=== PATIENT | female | born 1960 | race Two or more races ===

== ENCOUNTER 2020-04-04 15:01 | Inpatient (IN) | payer MEDICARE, OTHER ==
[~2020-04-04] VITALS: Ht 152.4 cm; Wt 93.9 kg
[2020-04-04] MEDS: IV NS 0.9% 1,000 ML IV ONE ×2 (00:49→18:30)
--- NOTE | 2020-04-04 15:05 | NUR ---
PT BIBRA FROM HOME, SOB, FEVER AND CHILLS X 2-3 DAYS. DENIES SICK CONTACT. PER EMS REPORT, PT WAS SATTING 50-70% ON ROOM AIR. HX OF DM. GOWNED AND PLACED ON MONITOR STILL HYPOXIC EVEN ON NON REBREATHER. AWAITING MD GOSS.
--- NOTE | 2020-04-04 15:07 | NUR ---
DR GUIDRY AT BEDSIDE FOR EVAL.
[2020-04-04 15:27] LABS: ABG BASE EXCESS -8.4 mmol/L; ABG PH 7.426 (7.350-7.450); ABG PO2 69.6 mmHg (75.0-100.0); AaDO2 622.4 mmHg; COHb 1.4 % (0.5-1.5); MetHb 0.4 % (0.0-1.5); O2Hb 91.3 % (94.0-97.0); SITE, ABG Right Radial; VENT MODE, BG NRB 100%
[2020-04-04] MEDS ORDERED: ACETAMINOPHEN 650 MG/SUPP.RECT RC ONE (15:30)
[2020-04-04] MEDS ORDERED: IV NS 0.9% 1,000 ML IV ONE (15:30)
[2020-04-04] MEDS ORDERED: ACETAMINOPHEN ES 500 MG TABLET PO ONE (15:30)
--- NOTE | 2020-04-04 15:30 | NUR ---
IV LINE STARTED BLOOD DRAWN AND SENT TO LAB.
--- NOTE | 2020-04-04 15:34 | NUR ---
RADIOLOGY AT BEDSIDE FOR CHEST XRAY.
[2020-04-04 15:40] LABS: BASOPHILS % (AUTO) 0.3 % (0.0-2.0); EOSINOPHILS % (AUTO) 0.2 % (0.0-6.0); HEMATOCRIT 41 % (33-45); HEMOGLOBIN 14.1 g/dL (11.5-14.8); LYMPHOCYTES # (AUTO) 0.7 /CMM (0.8-4.8); LYMPHOCYTES % (AUTO) 11.3 % (20.0-44.0); MEAN CORPUSCULAR HGB CONC 35 g/dl (31.0-36.0); MEAN CORPUSCULAR VOLUME 99 fL (82-100); MONOCYTES # (AUTO) 0.6 /CMM (0.1-1.30); MONOCYTES % (AUTO) 9.4 % (2.0-12.0); NEUTROPHILS # (AUTO) 4.9 /CMM (1.8-8.9); NEUTROPHILS % (AUTO) 78.8 % (43.0-81.0); PLATELET COUNT (AUTO) 144 /CMM (150-450); RED BLOOD CELL COUNT(AUTO) 4.15 MIL/uL (4.0-5.2); WHITE BLOOD COUNT (AUTO) 6.3 K/uL (4.3-11.0)
[2020-04-04] MEDS ORDERED: ACETAMINOPHEN ES 500 MG TABLET ONE (16:02)
[2020-04-04 16:07] LABS: ALANINE AMINOTRANSFERASE 36 U/L (12-78); ALBUMIN 3.1 g/dL (3.4-5.0); ALKALINE PHOSPHATASE 96 U/L (46-116); ASPARTATE AMINOTRANSFERASE 49 U/L (15-37); B-TYPE NATRIURETIC PEPTIDE 150 PG/ML (0-125); BILIRUBIN,TOTAL 2.4 mg/dL (0.2-1.0); CALCIUM, SERUM 8.7 mg/dL (8.5-10.1); CARBON DIOXIDE 17 mmol/L (21-32); CHLORIDE 101 mmol/L (98-107); CREATININE 1.3 mg/dL (0.6-1.3); POTASSIUM 4.5 mmol/L (3.5-5.1); SODIUM SERUM 136 mmol/L (136-145); TOTAL PROTEIN, SERUM 7.6 g/dL (6.4-8.2); UREA NITROGEN, BLOOD 26 mg/dL (7-18)
[2020-04-04 16:09] LABS: GLUCOSE 385 mg/dL (74-106)
[2020-04-04 16:10] LABS: FERRITIN 192 ng/mL (8-388)
[2020-04-04 16:15] LABS: C-REACTIVE PROTEIN 6.5 mg/dL (0.0-0.9)
[2020-04-04] MEDS ORDERED: CEFTRIAXONE 1GM BAG (ER ONLY) 50 ML IV ONE ×2 (17:00→17:22)
[2020-04-04] MEDS ORDERED: AZITHROMYCIN 500 MG in IV D5W 250 ML IV ONE (17:00)
[2020-04-04] MEDS ORDERED: DEXAMETHASONE SOD PHOSPHATE 10 MG/ML VIAL ONE (17:22)
[2020-04-04] MEDS ORDERED: DEXAMETHASONE SOD PHOSPHATE 4 MG/ML VIAL IV ONE (17:30)
[2020-04-04] MEDS ORDERED: INSULIN REGULAR, HUMAN 100 UNIT/ML 3 ML VIAL SQ PRN (18:30)
[2020-04-04] MEDS ORDERED: *INSULIN REGULAR(HUMULIN R)HUM 100 UNIT/ML VIAL SQ PRN (18:30)
[2020-04-04] MEDS ORDERED: DEXTROSE 50%-WATER 50 ML DISP.SYRIN IV PRN (18:30)
[2020-04-04] MEDS ORDERED: ACETAMINOPHEN 650 MG/SUPP.RECT RC PRN (18:30)
[2020-04-04] MEDS ORDERED: ALBUTEROL SULFATE 8 GM HFA.AER.AD IH PRN (18:30)
[2020-04-04] MEDS ORDERED: ONDANSETRON HCL/PF 4 MG/2 ML VIAL IVP PRN (18:30)
--- NOTE | 2020-04-04 19:30 | NUR ---
REPORT TO JESSIE ALONZO FOR LINETTE.
--- NOTE | 2020-04-04 19:37 | NUR ---
PT SAT 89-91% ON NON-RBR, MILADYS BRYSON CUSTODIAL OFFICER MADE AWARE FOR POSSIBLE HIGH FLOW O2. AWAITING ORDERS.
[2020-04-04 21:07] LABS: BILIRUBIN,DIRECT 1.4 mg/dL (0.0-0.2); BILIRUBIN,TOTAL 2.1 mg/dL (0.2-1.0)
[2020-04-04 22:09] LABS: BILIRUBIN,DIRECT 1.4 mg/dL (0.0-0.2)
[2020-04-04] MEDS: BLOOD SUGAR DIAGNOSTIC 1 EACH STRIP VI SCH (23:00)
[2020-04-05] VITALS (39 sets, daily range): BP systolic 87–157; BP diastolic 34–97
[2020-04-05] MEDS ORDERED: ENOXAPARIN SODIUM 100 MG/ML DISP.SYRIN SQ ONE (00:50)
--- NOTE | 2020-04-05 01:32 | NUR ---
TELE 116-1
--- NOTE | 2020-04-05 02:00 | NUR ---
report given to lalito sky for maria g pt will be transported to 1st floor
--- NOTE | 2020-04-05 02:20 | NUR ---
RN NOTE RECEIVED PATIENT FROM ER VIA GURNEY; ADMITTING DIAGNOSIS OF HYPOXIC RESPIRATORY FAILURE; COVID PCR RESULTS PENDING. PATIENT AWAKE, ALERT AND ORIENTED X4. [place] SPEAKING, ONLY, AG SILVA ASSISTED WITH TRANSLATION. DENIES PAIN. PATIENT'S BREATHING IS SHALLOW. PATIENT IS HIGH FLOW AT 100% FIO2 AND NRB AT 15L. SATURATING 89% AT THE MOMENT. PATIENT ON TELE MONITOR READING SINUS TACHY WITH HR AT 101. NOTED IV SITE AT RAC 18G, FLUSHING AND PATENT , SALINE LOCKED. NO S/S OF INFECTION OR INFILTRATION. PATIENT KEPT CLEAN, DRY AND COMFORTABLE.SAFETY MEASURES HAVE BEEN PROVIDED AND IMPLEMENTED. PATIENT BED ALARM IS ON. HEAD OF BED ELEVATED. BED IS LOCKED, IN LOWEST POSITION AND SIDE RAILS UP. CALL LIGHT WITHIN REACH OF THE PATIENT. ISOLATION PRECAUTIONS IN PLACE. NPO STATUS MAINTAINED. WILL CONTINUE TO MONITOR AND REASSESS FOR ANY CHANGES. WILL ATTEND TO ALL MD ADMITTING ORDERS.
--- NOTE | 2020-04-05 02:27 | NUR ---
pt transported to 1st floor
[2020-04-05] MEDS: ENOXAPARIN SODIUM 100 MG/ML DISP.SYRIN SQ SCH ×3 (02:28→20:44)
[2020-04-05] MEDS ORDERED: LEVO100T9 PO (04:04)
[2020-04-05] MEDS ORDERED: BENA10TA74 PO (04:04)
[2020-04-05] MEDS ORDERED: GLIM4TAB PO (04:04)
[2020-04-05] MEDS ORDERED: CALC-1258 PO (04:04)
[2020-04-05] MEDS ORDERED: METF-442 PO (04:04)
[2020-04-05 06:58] LABS: BASOPHILS % (AUTO) 0.1 % (0.0-2.0); EOSINOPHILS % (AUTO) 0.1 % (0.0-6.0); HEMATOCRIT 39 % (33-45); HEMOGLOBIN 13.3 g/dL (11.5-14.8); LYMPHOCYTES # (AUTO) 0.3 /CMM (0.8-4.8); LYMPHOCYTES % (AUTO) 5.3 % (20.0-44.0); MEAN CORPUSCULAR HGB CONC 34 g/dl (31.0-36.0); MEAN CORPUSCULAR VOLUME 99 fL (82-100); MONOCYTES # (AUTO) 0.3 /CMM (0.1-1.30); MONOCYTES % (AUTO) 4.7 % (2.0-12.0); NEUTROPHILS # (AUTO) 5.3 /CMM (1.8-8.9); NEUTROPHILS % (AUTO) 89.8 % (43.0-81.0); PLATELET COUNT (AUTO) 113 /CMM (150-450); RED BLOOD CELL COUNT(AUTO) 3.94 MIL/uL (4.0-5.2); WHITE BLOOD COUNT (AUTO) 5.9 K/uL (4.3-11.0)
[2020-04-05] MEDS: LEVOTHYROXINE SODIUM 100 MCG TABLET PO SCH (07:30)
--- NOTE | 2020-04-05 07:30 | NUR ---
RN OPENING NOTE RECEIVED PATIENT IN BED; PATIENT AWAKE, ALERT AND ORIENTED X4. ROMANSH SPEAKING. DENIES PAIN. PATIENT'S BREATHING IS SHALLOW. PATIENT IS HIGH FLOW AT 100% FIO2 AND NRB AT 15L. SATURATING 86% AT THE MOMENT. PATIENT ON TELE MONITOR READING SINUS TACHY. NOTED IV SITE AT RAC 18G, FLUSHING AND PATENT , SALINE LOCKED. NO S/S OF INFECTION OR INFILTRATION. PATIENT KEPT CLEAN, DRY AND COMFORTABLE.SAFETY MEASURES HAVE BEEN PROVIDED AND IMPLEMENTED. PATIENT BED ALARM IS ON. HEAD OF BED ELEVATED. BED IS LOCKED, IN LOWEST POSITION AND SIDE RAILS UP. CALL LIGHT WITHIN REACH OF THE PATIENT. ISOLATION PRECAUTIONS IN PLACE. NPO STATUS MAINTAINED. WILL CONTINUE TO MONITOR AND PROVIDE CARE.OPENING
[2020-04-05 07:35] LABS: ALBUMIN 2.8 g/dL (3.4-5.0); BILIRUBIN,TOTAL 1.6 mg/dL (0.2-1.0); CALCIUM, SERUM 8.5 mg/dL (8.5-10.1); CREATININE 1.1 mg/dL (0.6-1.3); MAGNESIUM 1.9 mg/dL (1.8-2.4); PHOSPHORUS 3.2 mg/dL (2.5-4.9); POTASSIUM 4.3 mmol/L (3.5-5.1); TOTAL PROTEIN, SERUM 7.2 g/dL (6.4-8.2)
[2020-04-05 07:55] LABS: ABG BASE EXCESS -7.1 mmol/L; ABG OXYGEN SATURATION 84.5 % (92.0-98.5); ABG PCO2 34.6 mmHg (35.0-45.0); ABG PH 7.332 (7.350-7.450); ABG PO2 50.6 mmHg (75.0-100.0); AaDO2 627.8 mmHg; COHb 0.6 % (0.5-1.5); MetHb 0.2 % (0.0-1.5); O2Hb 83.8 % (94.0-97.0); SITE, ABG Right Radial
--- NOTE | 2020-04-05 08:04 | NUR ---
notified re; ABG results and waiting for returning call back
[2020-04-05] MEDS: BLOOD SUGAR DIAGNOSTIC 1 EACH STRIP VI SCH (08:05)
--- NOTE | 2020-04-05 08:07 | NUR ---
returned call back stated if it distress no change and will see him this morning
[2020-04-05 08:17] LABS: THYROID STIMULATING HORMONE 0.312 uIU/mL (0.358-3.74)
[2020-04-05] MEDS: METFORMIN 500 MG TABLET PO SCH ×2 (08:30→17:49)
[2020-04-05] MEDS: GLIMEPIRIDE 4 MG TABLET PO SCH ×2 (08:41→17:49)
[2020-04-05] MEDS: DEXAMETHASONE SOD PHOSPHATE 4 MG/ML VIAL IV SCH (08:43)
--- NOTE | 2020-04-05 09:21 | NUR ---
MD notified of low platelet count (113). MD instructed to administer Lovenox 0.9mg as ordered. Medication administered. will cont to monitor patient.
[2020-04-05 11:29] LABS: ABG BASE EXCESS -7.5 mmol/L; ABG OXYGEN SATURATION 82.9 % (92.0-98.5); ABG PCO2 28.6 mmHg (35.0-45.0); ABG PH 7.372 (7.350-7.450); ABG PO2 46.2 mmHg (75.0-100.0); AaDO2 638.2 mmHg; COHb 0.7 % (0.5-1.5); MetHb 0.3 % (0.0-1.5); O2Hb 82.1 % (94.0-97.0); SITE, ABG Right Radial
[2020-04-05] MEDS ORDERED: DEXTROSE 50%-WATER 50 ML DISP.SYRIN IV PRN (11:30)
--- NOTE | 2020-04-05 11:55 | NUR ---
PATIENT TRANSFERRED TO ICU. REPORT GIVEN TO CHERI CUEVA AT BEDSIDE.
[2020-04-05] MEDS ORDERED: REMDESIVIR (CHARGED) 200 MG, *LOADING DOSE 1 EA in IV NS 0.9% 210 ML IV ONE (12:00)
--- NOTE | 2020-04-05 12:00 | NUR ---
ASSISTANT BOILER OPERATOR NOTE RECEIVED PT FROM [facility] AND REPORT GIVEN BY CHERI DARLING. PT A/Ox4, [place] SPEAKING, ON HIGH FLOW O2 AT 100%EIO2, 40LPM AND NRB 15LPM. PT SPO2 OF 78%. PT IS SINUS TACHY ON TELE MONITOR. V SITE AT RAC 18G, FLUSHING AND PATENT , SALINE LOCKED. NO S/S OF INFECTION OR INFILTRATION. ALL PT SAFETY PRECAUTIONS IN PLACE. AWAITING ANESTHESIOLOGIST FOR INTUBATION. WILL CONTINUE TO MONITOR
[2020-04-05] MEDS: BLOOD SUGAR DIAGNOSTIC 1 EACH STRIP IN SCH ×3 (13:01→23:36)
--- NOTE | 2020-04-05 13:35 | NUR ---
RN NOTE PEDIATRIC IMMUNOLOGIST CARLO SAID PER DR DIETRICH, CAN WAIT FOR NEGATIVE COVID PCR TEST/RESULT PRIOR TO PERFORMING UPPER AND LOWER DUPLEX VENOUS TEST
[2020-04-05] MEDS: INSULIN REGULAR, HUMAN 100 UNIT/ML 3 ML VIAL SQ PRN ×3 (13:46→23:38)
--- NOTE | 2020-04-05 14:25 | NUR ---
pt intubated @ 1245 due to increase work of breathing and low pao2 and spo2. pt intubated with 7.5 ET tube secured @ 21 cm lipline. CO2 detector changed to yellow color with breath sounds clear bilateral post intubation. vent settings below per dr. patrick: AC 24 VT 500 ML FIO2 100% PEEP +12 VENT IS PLUGGED INTO RED OUTLET WITH ALARMS ON AND FUNCTIONING. AMBUBAG @ BEDSIDE. Addendum: 04/05/20 at 1509 by CASANDRA LUNDBERG RT Amended: Links added. Addendum: 04/05/20 at 1724 by CASANDRA LUNDBERG RT ABOVE INFORMATION IS IN ERROR. THIS IS THE CORRECT INFORMATION: pt intubated @ 1445 due to increase work of breathing and low pao2 and spo2. pt intubated with 7.5 ET tube secured @ 21 cm lipline. CO2 detector changed to yellow color with breath sounds clear bilateral post intubation. vent settings below per dr. patrick:
[2020-04-05] MEDS: PROPOFOL 100 ML IV PRN ×3 (14:45→22:00)
--- NOTE | 2020-04-05 15:15 | NUR ---
RN NOTE MARCELINO MIDLINE INSERTED SUCCESSFULLY
--- NOTE | 2020-04-05 16:56 | NUR ---
RN NOTE OG TUBE AND JARRELL CATH PLACED IN PT. OGT AUSCULTATED FOR PLACEMENT AND VERIFIED WITH 2ND RN, HEARD GARLING WHOOSH SOUNDS; MINIMAL DARK GREEN RESIDUALS NOTED
[2020-04-05 17:03] LABS: ABG BASE EXCESS -8.2 mmol/L; ABG OXYGEN SATURATION 87.5 % (92.0-98.5); ABG PCO2 30.2 mmHg (35.0-45.0); ABG PH 7.346 (7.350-7.450); ABG PO2 55.2 mmHg (75.0-100.0); AaDO2 627.6 mmHg; COHb 0.7 % (0.5-1.5); MetHb 0.4 % (0.0-1.5); O2Hb 86.5 % (94.0-97.0); PEEP,BG 12 cm H2O; SITE, ABG Right Radial; VT, ABG 500 mL
--- NOTE | 2020-04-05 17:18 | NUR ---
INCREASE PEEP FROM 12 TO +[address] SCHULER Addendum: 04/05/20 at 1719 by CASANDRA LUNDBERG RT Amended: Links added.
[2020-04-05] MEDS ORDERED: ETOMIDATE 2 MG/ML VIAL IV ONE (17:20)
[2020-04-05] MEDS ORDERED: SUCCINYLCHOLINE CHLORIDE 20 MG/ML VIAL IV ONE (17:20)
[2020-04-05] MEDS: AZITHROMYCIN 500 MG in IV D5W 250 ML IV SCH (17:32)
[2020-04-05] MEDS: NOREPINEPHRINE 8 MG in IV NS 0.9% 242 ML IV PRN (18:49)
--- NOTE | 2020-04-05 19:00 | NUR ---
CHEF GERMAN CLOSING NOTE] PT IN STABLE CONDITIONS, TOLERATING VENT SETTINGS ORDERED WELL, NO SOB OR RESP DISTRESS, SPO2 OF 95%. PT CURRENTLY ON DIPRIVAN 60 MCG/KG/MIN AND LEVOPHED 0.1 MCG/KG/MIN. CONV PLASMA IS ALSO READY TO BE PICKED UP FROM LAB. ALL PT SAFETY PRECAUTIONS IN PLACE. WILL ENDORSE LINETTE TO ONCOMING NURSE.
--- NOTE | 2020-04-05 19:05 | NUR ---
RECEIVED PT ON BED SEDATED, ON ETT/VENT SETTING PER MD SPO2 98%, NO SIGN OF DISTRESS NOTED, NO PAIN NOTED, TELE MONITOR READS SINUS RHYTHM 83, HAVE OGT CLAMPED PLACEMENT CHECKED, HAVE MARCELINO MIDLINE AND RIGHT AC#18 PATENT AND FLUSHED WITH ONGOING DIPRIVAN @ 60MCG/KG/MIN AND LEVOPHED @ 0.1 MCG/KG/MIN INFUSING WELL, HAVE BILATERAL WRIST RESTRAINTS CIRCULATION WAS CHECK, HAVE JARRELL CATHETER WITH YELLOW URINE DRAINING THRU GRAVITY, SIDE RAILS UP X3 BED ON LOWEST POSITION AND LOCKED WILL CONT TO MONITOR
[2020-04-05] MEDS: CEFTRIAXONE 1 G in IV D5W 50 ML IV SCH (19:23)
--- NOTE | 2020-04-05 21:09 | NUR ---
CONVALESCENT PLASMA TRANSFUSION STARTED WITH CURRENT V/S TEMP 98.7 HR 81 RR 22 BP 118/54 SPO2 98% STILL ON ETT/VENT, TRANSFUSION VERIFICATION DONE WITH OTHER NURSE, WILL CONT TO MONITOR THE PT
--- NOTE | 2020-04-05 21:30 | NUR ---
CONVALESCENT PLASMA TRANSFUSION ONGOING WITH LATEST V/S TEMP 98.4 RR 25 HR 81 BP 114/53 SPO2 98% NO SIGN AND SYMPTOMS OF DISTRESS OR TRANSFUSION REACTION NOTED WILL CONT TO MONITOR THE PT
[2020-04-05] MEDS ORDERED: INSULIN GLARGINE, 100 UNIT/ML CARTRIDGE SQ SCH (22:00)
--- NOTE | 2020-04-05 23:05 | NUR ---
CONVALESCENT PLASMA TRANSFUSION COMPLETED WITH LATEST V/S TEMP 98.4 HR 79 RR 26 BP 119/54 SPO2 98% PT STILL SEDATED ON ETT/VENT SETTING PER MD NO TRANSFUSION REACTION NOTED WILL CONT TO MONITOR THE PT
[2020-04-05 23:58] LABS: BILIRUBIN,URINE SMALL (NEGATIVE); COLOR,URINE YELLOW (YELLOW); LEUKOCYTE ESTERASE ,URINE NEGATIVE (NEGATIVE); NITRITE, URINE NEGATIVE (NEGATIVE); PROTEIN,URINE 100 mg/dl (NEGATIVE); UGLUCOSE >=1000 mg/dL (NEGATIVE); UROBILINOGEN,URINE 0.2 EU/dL (0.2)
[2020-04-06] VITALS (62 sets, daily range): BP systolic 80–134; BP diastolic 37–68
[2020-04-06 00:02] LABS: RBC,URINE 21-50 /HPF (0-2)
[2020-04-06 00:03] LABS: BACTERIA,URINE None seen /HPF (None Seen); SQUAMOUS EPITHELIAL CELL,UR Few /HPF (None Seen)
[2020-04-06 00:13] LABS: CREATININE, URINE 203.6 MG/DL (30.0-125.0)
--- NOTE | 2020-04-06 00:30 | NUR ---
BLOOD SUGAR 420 REGULAR INSULIN ADMINISTERED PER SSI REPOSRTED TO / [facility] FIRST AID TEACHER WITH NO NEW ORDER WILL CONT TO MONITOR THE PT
[2020-04-06] MEDS: PROPOFOL 100 ML IV PRN ×8 (00:49→20:56)
[2020-04-06] MEDS: INSULIN REGULAR, HUMAN 100 UNIT/ML 3 ML VIAL SQ PRN (06:05)
[2020-04-06] MEDS: BLOOD SUGAR DIAGNOSTIC 1 EACH STRIP IN SCH ×13 (06:06→23:13)
--- NOTE | 2020-04-06 06:12 | NUR ---
BLOOD SUGAR 404, 20 UNITS REGULAR INSULIN GIVEN SQ PER SSI, DR ARVIZU MADE AWARE WITH NO NEW ORDER, WILL CONT TO MONITOR THE PT
[2020-04-06 06:13] LABS: BASOPHILS % (AUTO) 0.3 % (0.0-2.0); HEMATOCRIT 39 % (33-45); HEMOGLOBIN 13.2 g/dL (11.5-14.8); LYMPHOCYTES % (AUTO) 5.7 % (20.0-44.0); MEAN CORPUSCULAR HGB CONC 34 g/dl (31.0-36.0); MEAN CORPUSCULAR VOLUME 100 fL (82-100); MONOCYTES % (AUTO) 5.7 % (2.0-12.0); NEUTROPHILS # (AUTO) 16.2 /CMM (1.8-8.9); NEUTROPHILS % (AUTO) 88.3 % (43.0-81.0); RED BLOOD CELL COUNT(AUTO) 3.93 MIL/uL (4.0-5.2); WHITE BLOOD COUNT (AUTO) 18.3 K/uL (4.3-11.0)
[2020-04-06 06:38] LABS: CALCIUM, SERUM 8.3 mg/dL (8.5-10.1); CREATININE 1.3 mg/dL (0.6-1.3); MAGNESIUM 2.1 mg/dL (1.8-2.4); PHOSPHORUS 2.7 mg/dL (2.5-4.9); POTASSIUM 4.3 mmol/L (3.5-5.1)
--- NOTE | 2020-04-06 07:28 | NUR ---
PT ON BED SEDATED WITH PROPOFOL @ 60MCG/KG/MIN STILL ON ETT/VENT SETTING PER MD FIO2 100% SPO2 96% TELE MONITOR READS SINUS RHYTHM 80'S NO SIGNIFICANT CHANGES ON CONDITION NOTED, ALL NEEDS ATTENDED BED ON LOWEST POSITION AND LOCKED SIDE RAILS UP X2 0 WILL ENDORSED TO AM SHIFT NURSE
--- NOTE | 2020-04-06 07:30 | NUR ---
FILE CLERK DATA ENTRY OPENING NOTE PT LYING IN BED SEDATED, ON ETT/VENT SETTING PER MD ORDER SPO2 OF 97%, NO SIGN OF RESP DISTRESS OR SOB, NO PAIN NOTED PER FLACC SCALE. PT OGT PLACEMENT CHECKED AND FLUSHED PATENT, NOW CLAMPED. PT MARCELINO MIDLINE AND RIGHT AC#18 PATENT AND FLUSHED WITH DIPRIVAN RUNNING @ 60MCG/KG/MIN AND LEVOPHED @ 0.06 MCG/KG/MIN INFUSING WELL. PT BILATERAL WRIST RESTRAINTS CMS INTACT. PT JARRELL CATHETER DRAINING BILL URINE VIA GRAVITY. ALL PT SAFETY MEASURES IN PLACE. WILL CONT TO MONITOR
[2020-04-06] MEDS: GLIMEPIRIDE 4 MG TABLET PO SCH ×2 (08:45→16:59)
[2020-04-06] MEDS: METFORMIN 500 MG TABLET PO SCH ×2 (08:45→18:00)
[2020-04-06] MEDS: DEXAMETHASONE SOD PHOSPHATE 4 MG/ML VIAL IV SCH (08:45)
[2020-04-06] MEDS: LEVOTHYROXINE SODIUM 100 MCG TABLET PO SCH (08:45)
[2020-04-06] MEDS: ENOXAPARIN SODIUM 100 MG/ML DISP.SYRIN SQ SCH ×2 (09:01→20:31)
[2020-04-06] MEDS: IV NS 0.9% 1,000 ML IV SCH ×2 (09:11→22:00)
[2020-04-06] MEDS: NOREPINEPHRINE 8 MG in IV NS 0.9% 242 ML IV PRN (09:11)
[2020-04-06 09:21] LABS: ABG BASE EXCESS -10.3 mmol/L; ABG OXYGEN SATURATION 97.7 % (92.0-98.5); ABG PCO2 30.8 mmHg (35.0-45.0); AaDO2 572.2 mmHg; COHb 0.3 % (0.5-1.5); MetHb 0.3 % (0.0-1.5); O2Hb 97.1 % (94.0-97.0); SITE, ABG Right Radial; VENT MODE, BG AC 24 500 +15 100%
[2020-04-06 10:04] LABS: PLATELET COUNT (AUTO) 255 /CMM (150-450)
[2020-04-06 10:06] LABS: BAND % (MANUAL) 8 % (0.0-5.0); LYMPHOCYTES % (MANUAL) 9 % (16-48); MONOCYTES % (MANUAL) 3 % (0-11.0); MYELOCYTES % 1 % (0-0); NEUTROPHILS % (MANUAL) 79 (42-76)
[2020-04-06] MEDS ORDERED: REMDESIVIR (CHARGED) 100 MG in IV NS 0.9% 230 ML IV SCH (12:00)
--- NOTE | 2020-04-06 12:00 | NUR ---
RN NOTE INSULIN DRIP STARTED AT 1200 PER PROTOCOL ORDERED: BLOOD SUGAR x 2 / 100 = HOURLY GTTS RATE. WILL PERFORM ACCUCHECK HOURLY AND CONTINUE TO MONITOR PT THROUGHOUT
[2020-04-06] MEDS: INSULIN REGULAR, HUMAN 100 UNIT in IV NS 0.9% 99 ML IV PRN ×2 (12:05)
--- NOTE | 2020-04-06 13:33 | NUR ---
RN NOTE SPOKE WITH PT'S SON REGARDING PT'S CONDITION. ALL QUESTIONS ANSWERED TO HIS SATISFACTION
[2020-04-06 14:02] LABS: CREATININE 1.4 mg/dL (0.6-1.3); PHOSPHORUS 2.6 mg/dL (2.5-4.9); POTASSIUM 4.2 mmol/L (3.5-5.1)
--- NOTE | 2020-04-06 16:59 | NUR ---
RN NOTE 1700 GLIMEPERIDE HELD; PT ON INSULIN DRIP
--- NOTE | 2020-04-06 17:18 | NUR ---
fio2 increase to 100% due to 87% spo2. Addendum: 04/06/20 at 1718 by CASANDRA LUNDBERG RT Amended: Links added.
[2020-04-06] MEDS: AZITHROMYCIN 500 MG in IV D5W 250 ML IV SCH (17:24)
[2020-04-06 17:25] LABS: CALCIUM, SERUM 7.9 mg/dL (8.5-10.1); CREATININE 1.4 mg/dL (0.6-1.3); PHOSPHORUS 2.6 mg/dL (2.5-4.9); POTASSIUM 3.9 mmol/L (3.5-5.1)
[2020-04-06] MEDS: CEFTRIAXONE 1 G in IV D5W 50 ML IV SCH (18:54)
--- NOTE | 2020-04-06 19:00 | NUR ---
RN CLOSING NOTE PT IN STABLE CONDITION, ON VENT SETTINGS PER MD ORDER WITH NO SIGNS OF RESP DISTRESS. PT ON LEVO @ 0.06 MCG/KG/MIN AND DIPRIVAN @ 60MCG/KG/MIN AND NS @ 75 ML/HR. PT TOLERATING INSULIN DRIP WELL PER PROTOCOL. ALL PT SAFETY PRECAUTIONS IN PLACE. WILL ENDORSE CARE TO ONCOMING NURSE.
--- NOTE | 2020-04-06 19:10 | NUR ---
RECEIVED PT ON BED SEDATED, ON ETT/VENT SETTING PER MD SPO2 92%, NO SIGN OF DISTRESS NOTED, NO PAIN NOTED, TELE MONITOR READS SINUS RHYTHM 83, HAVE OGT CLAMPED PLACEMENT CHECKED, HAVE MARCELINO MIDLINE AND RIGHT AC#18 PATENT AND FLUSHED WITH ONGOING DIPRIVAN @ 60MCG/KG/MIN AND LEVOPHED @ 0.06 MCG/KG/MIN AND INSULIN DRIP @ 4.4 UNITS /HR PER MD ORDER INFUSING WELL, HAVE BILATERAL WRIST RESTRAINTS CIRCULATION WAS CHECK, HAVE JARRELL CATHETER WITH YELLOW URINE DRAINING THRU GRAVITY, SIDE RAILS UP X3 BED ON LOWEST POSITION AND LOCKED WILL CONT TO MONITOR
--- NOTE | 2020-04-06 19:30 | NUR ---
TRY TO LOWER THE DIPRIVAN PT STILL SEDATED WITH 40 MCG/KG/MIN NO SOB NOTED WILL CONT TO MONITOR THE PT
[2020-04-06 20:54] LABS: CALCIUM, SERUM 7.9 mg/dL (8.5-10.1); CREATININE 1.4 mg/dL (0.6-1.3); MAGNESIUM 1.9 mg/dL (1.8-2.4); PHOSPHORUS 2.8 mg/dL (2.5-4.9)
[2020-04-07] VITALS (72 sets, daily range): BP systolic 94–135; BP diastolic 45–65
[2020-04-07] MEDS: BLOOD SUGAR DIAGNOSTIC 1 EACH STRIP IN SCH ×22 (00:11→23:31)
[2020-04-07] MEDS: NOREPINEPHRINE 8 MG in IV NS 0.9% 242 ML IV PRN (00:38)
[2020-04-07] MEDS: INSULIN REGULAR, HUMAN 100 UNIT in IV NS 0.9% 99 ML IV PRN ×2 (00:40)
[2020-04-07 01:17] LABS: CALCIUM, SERUM 7.7 mg/dL (8.5-10.1); CREATININE 1.3 mg/dL (0.6-1.3); MAGNESIUM 1.9 mg/dL (1.8-2.4); PHOSPHORUS 2.9 mg/dL (2.5-4.9); POTASSIUM 4.2 mmol/L (3.5-5.1)
[2020-04-07] MEDS: PROPOFOL 100 ML IV PRN ×5 (01:41→21:47)
[2020-04-07 04:30] LABS: BASOPHILS % (AUTO) 0.1 % (0.0-2.0); HEMATOCRIT 38 % (33-45); HEMOGLOBIN 12.9 g/dL (11.5-14.8); LYMPHOCYTES # (AUTO) 0.9 /CMM (0.8-4.8); LYMPHOCYTES % (AUTO) 5.7 % (20.0-44.0); MEAN CORPUSCULAR HGB CONC 35 g/dl (31.0-36.0); MEAN CORPUSCULAR VOLUME 98 fL (82-100); MONOCYTES # (AUTO) 1.2 /CMM (0.1-1.30); MONOCYTES % (AUTO) 7.9 % (2.0-12.0); NEUTROPHILS # (AUTO) 13.5 /CMM (1.8-8.9); NEUTROPHILS % (AUTO) 86.3 % (43.0-81.0); PLATELET COUNT (AUTO) 213 /CMM (150-450); RED BLOOD CELL COUNT(AUTO) 3.83 MIL/uL (4.0-5.2); WHITE BLOOD COUNT (AUTO) 15.7 K/uL (4.3-11.0)
[2020-04-07 04:53] LABS: CALCIUM, SERUM 7.7 mg/dL (8.5-10.1); CREATININE 1.2 mg/dL (0.6-1.3); PHOSPHORUS 2.8 mg/dL (2.5-4.9); POTASSIUM 4.1 mmol/L (3.5-5.1)
[2020-04-07 05:19] LABS: ABG BASE EXCESS -9.6 mmol/L; ABG OXYGEN SATURATION 94.1 % (92.0-98.5); ABG PH 7.313 (7.350-7.450); ABG PO2 74.8 mmHg (75.0-100.0); AaDO2 607.2 mmHg; COHb 0.5 % (0.5-1.5); MetHb 0.1 % (0.0-1.5); O2Hb 93.5 % (94.0-97.0); PEEP,BG 12 cm H2O; SITE, ABG Left Radial; VT, ABG 500 mL
[2020-04-07] MEDS: LEVOTHYROXINE SODIUM 100 MCG TABLET PO SCH (08:00)
[2020-04-07] MEDS: METFORMIN 500 MG TABLET PO SCH ×2 (08:00→18:13)
[2020-04-07] MEDS: DEXAMETHASONE SOD PHOSPHATE 4 MG/ML VIAL IV SCH (08:00)
[2020-04-07] MEDS: GLIMEPIRIDE 4 MG TABLET PO SCH ×2 (08:01→17:40)
[2020-04-07] MEDS: ENOXAPARIN SODIUM 100 MG/ML DISP.SYRIN SQ SCH ×2 (08:02→21:49)
--- NOTE | 2020-04-07 08:17 | NUR ---
PT ON BED SEDATED WITH PROPOFOL @ 60MCG/KG/MIN STILL ON ETT/VENT SETTING PER MD FIO2 100% SPO2 92% TELE MONITOR READS SINUS RHYTHM 80'S NO SIGNIFICANT CHANGES ON CONDITION NOTED, ALL NEEDS ATTENDED BED ON LOWEST POSITION AND LOCKED SIDE RAILS UP X2 0 WILL ENDORSED TO AM SHIFT NURSE
--- NOTE | 2020-04-07 08:40 | NUR ---
WOUND CARE CONSULT: REVIEWED CHART,NURSING DOCUMENTATION AND PHOTO WHICH INDICATES DISCOLORED AREA TO LEFT BUTTOCK. PT IS ON ROGELIO ISOFLEX LOW AIRLOSS BED. ALL SKIN PROTECTION RECOMMENDATIONS DISCUSSED WITH NURSING STAFF. M D IN AGREEMENT WITH PLAN OF CARE.
[2020-04-07 08:51] LABS: CALCIUM, SERUM 7.5 mg/dL (8.5-10.1); MAGNESIUM 3.2 mg/dL (1.8-2.4); PHOSPHORUS 2.5 mg/dL (2.5-4.9)
[2020-04-07] MEDS: Z GUARD REMEDY 2 OZ OINT TP SCH (09:00)
[2020-04-07] MEDS ORDERED: Z GUARD REMEDY 2 OZ OINT TP PRN (09:00)
[2020-04-07 10:47] LABS: ABG BASE EXCESS -10.7 mmol/L; ABG OXYGEN SATURATION 99.1 % (92.0-98.5); ABG PCO2 29.2 mmHg (35.0-45.0); ABG PH 7.305 (7.350-7.450); AaDO2 500.8 mmHg; COHb 0.3 % (0.5-1.5); MetHb 0.2 % (0.0-1.5); O2Hb 98.6 % (94.0-97.0); SITE, ABG Left Radial; VENT MODE, BG AC 24 500 +12 100%
[2020-04-07] MEDS: IV NS 0.9% 1,000 ML IV SCH (11:02)
[2020-04-07] MEDS ORDERED: METOPROLOL TARTRATE 25 MG TABLET PO SCH (11:30)
[2020-04-07 13:38] LABS: CREATININE 0.9 mg/dL (0.6-1.3); MAGNESIUM 1.7 mg/dL (1.8-2.4); POTASSIUM 3.8 mmol/L (3.5-5.1)
--- NOTE | 2020-04-07 14:00 | NUR ---
PER RUBEN BRYSON, NO ORDERS TO CHANGE NS TO D5 YET, WILL CHANGE FLUIDS WHEN INSULIN DRIP IS DC
[2020-04-07 14:04] LABS: CALCIUM, SERUM 5.7 mg/dL (8.5-10.1)
--- NOTE | 2020-04-07 15:15 | NUR ---
PT BS AT 1400 WAS 157, 1500 BS WAS 157. ACCU-CHECKS ON MAR SCANNED AT SAME TIME, ALTHOUGH ACCU-CHECKS PERFORMED SEPARATELY AT 1400 AND 1500, DUE TO MISTAKE IN CHARTING
[2020-04-07] MEDS ORDERED: NEUTRA PHOS 1 POWD.PACKET GT ONE (16:00)
--- NOTE | 2020-04-07 16:30 | NUR ---
PT CRITICAL VALUE OF 5.7 CALCIUM, RUBEN BRYSON PREVIOUSLY MADE AWARE; BMP RECHECKED AT 1600, CALCIUM NOW 7.1. PER RUBEN BRYSON, NO FURTHER ORDERS FOR REPLACEMENT
[2020-04-07 16:38] LABS: CALCIUM, SERUM 7.1 mg/dL (8.5-10.1); PHOSPHORUS 2.6 mg/dL (2.5-4.9); POTASSIUM 4.2 mmol/L (3.5-5.1)
[2020-04-07] MEDS: CEFTRIAXONE 1 G in IV D5W 50 ML IV SCH (19:26)
[2020-04-07] MEDS: AZITHROMYCIN 500 MG in IV D5W 250 ML IV SCH (19:26)
[2020-04-07 20:20] LABS: CALCIUM, SERUM 7.4 mg/dL (8.5-10.1); CREATININE 1.1 mg/dL (0.6-1.3); POTASSIUM 4.3 mmol/L (3.5-5.1)
[2020-04-07 20:23] LABS: PHOSPHORUS 2.8 mg/dL (2.5-4.9)
[2020-04-08] VITALS (82 sets, daily range): BP systolic 93–119; BP diastolic 45–60
[2020-04-08] MEDS: PROPOFOL 100 ML IV PRN ×8 (00:09→18:27)
[2020-04-08] MEDS: BLOOD SUGAR DIAGNOSTIC 1 EACH STRIP IN SCH ×23 (00:29→23:20)
[2020-04-08] MEDS: IV NS 0.9% 1,000 ML IV SCH ×2 (00:33→14:19)
[2020-04-08 01:16] LABS: CALCIUM, SERUM 7.2 mg/dL (8.5-10.1); POTASSIUM 4.2 mmol/L (3.5-5.1)
[2020-04-08 04:14] LABS: BASOPHILS % (AUTO) 0.2 % (0.0-2.0); EOSINOPHILS % (AUTO) 0.1 % (0.0-6.0); HEMATOCRIT 32 % (33-45); HEMOGLOBIN 10.9 g/dL (11.5-14.8); LYMPHOCYTES # (AUTO) 0.5 /CMM (0.8-4.8); MEAN CORPUSCULAR HGB CONC 34 g/dl (31.0-36.0); MEAN CORPUSCULAR VOLUME 99 fL (82-100); MONOCYTES # (AUTO) 0.6 /CMM (0.1-1.30); MONOCYTES % (AUTO) 8.4 % (2.0-12.0); NEUTROPHILS # (AUTO) 5.6 /CMM (1.8-8.9); NEUTROPHILS % (AUTO) 83.3 % (43.0-81.0); PLATELET COUNT (AUTO) 113 /CMM (150-450); WHITE BLOOD COUNT (AUTO) 6.7 K/uL (4.3-11.0)
[2020-04-08 04:43] LABS: CALCIUM, SERUM 8.6 mg/dL (8.5-10.1); CREATININE 1.1 mg/dL (0.6-1.3); MAGNESIUM 2.1 mg/dL (1.8-2.4); PHOSPHORUS 3.4 mg/dL (2.5-4.9); POTASSIUM 4.2 mmol/L (3.5-5.1)
[2020-04-08 05:42] LABS: ABG BASE EXCESS -12.3 mmol/L; ABG OXYGEN SATURATION 98.6 % (92.0-98.5); ABG PCO2 29.1 mmHg (35.0-45.0); ABG PH 7.274 (7.350-7.450); ABG PO2 153.6 mmHg (75.0-100.0); AaDO2 530.3 mmHg; COHb 0.3 % (0.5-1.5); MetHb 0.3 % (0.0-1.5); PEEP,BG 12 cm H2O; SITE, ABG Left Radial; VENT MODE, BG INVERSE 2:1; VT, ABG 500 mL
[2020-04-08] MEDS: INSULIN REGULAR, HUMAN 100 UNIT in IV NS 0.9% 99 ML IV PRN ×2 (07:15)
[2020-04-08] MEDS: LEVOTHYROXINE SODIUM 100 MCG TABLET PO SCH ×2 (07:30→09:02)
--- NOTE | 2020-04-08 07:30 | NUR ---
RN OPENING NOTES PATIENT PRESENT IN BED, SEDATED, ON VENT SETTINGS, TOLERATING WELL, SPO2 IS 99%, NO SOB, RESP EVEN AND UNLABORED, ON PROPOFOL @ 60MCG/KG/MIN, JARRELL CATH IN PLACE DRAINING DARK BROWN URINE BY GRAVITY, OGT PRESENT, AUSCULTATED AND CHECKED FOR PLACEMENT, IV MIDLINE PATENT AND INTACT, SAFETY MEASURES IN PLACE WILL CONT TO MONITOR
[2020-04-08] MEDS: METFORMIN 500 MG TABLET PO SCH ×2 (08:00→09:02)
[2020-04-08] MEDS: GLIMEPIRIDE 4 MG TABLET PO SCH (09:02)
[2020-04-08] MEDS: Z GUARD REMEDY 2 OZ OINT TP SCH (09:03)
[2020-04-08] MEDS: DEXAMETHASONE SOD PHOSPHATE 4 MG/ML VIAL IV SCH (09:03)
[2020-04-08] MEDS: ENOXAPARIN SODIUM 100 MG/ML DISP.SYRIN SQ SCH ×2 (09:05→21:56)
[2020-04-08 10:02] LABS: CALCIUM, SERUM 7.1 mg/dL (8.5-10.1); POTASSIUM 4.2 mmol/L (3.5-5.1)
[2020-04-08 10:06] LABS: MAGNESIUM 2.1 mg/dL (1.8-2.4); PHOSPHORUS 3.5 mg/dL (2.5-4.9)
[2020-04-08] MEDS: AZITHROMYCIN 500 MG in IV D5W 250 ML IV SCH (17:48)
[2020-04-08] MEDS: IV 10% DEXTROSE 1,000 ML IV PRN (18:43)
[2020-04-08] MEDS: CEFTRIAXONE 1 G in IV D5W 50 ML IV SCH (18:46)
--- NOTE | 2020-04-08 19:25 | NUR ---
RN CLOSING NOTE PT IN STABLE CONDITION, ON VENT SETTINGS PER MD ORDER WITH NO SIGNS OF RESP DISTRESS. PT ON INSULIN DRIP AND PROPOFOL AT THIS MOMENT, . PT TOLERATING INSULIN DRIP WELL PER PROTOCOL. ALL PT SAFETY PRECAUTIONS IN PLACE. WILL ENDORSE CARE TO ONCOMING NURSE.
[2020-04-08 20:45] LABS: CALCIUM, SERUM 6.6 mg/dL (8.5-10.1); POTASSIUM 4.2 mmol/L (3.5-5.1)
[2020-04-09] VITALS (76 sets, daily range): BP systolic 92–118; BP diastolic 40–64
[2020-04-09] MEDS: PROPOFOL 100 ML IV PRN ×9 (00:01→22:53)
[2020-04-09] MEDS: BLOOD SUGAR DIAGNOSTIC 1 EACH STRIP IN SCH ×24 (00:08→23:34)
[2020-04-09 00:23] LABS: CALCIUM, SERUM 6.7 mg/dL (8.5-10.1); CREATININE 0.9 mg/dL (0.6-1.3); POTASSIUM 4.1 mmol/L (3.5-5.1)
[2020-04-09] MEDS: IV 10% DEXTROSE 1,000 ML IV PRN ×2 (02:30→13:28)
[2020-04-09] MEDS: IV NS 0.9% 1,000 ML IV SCH ×2 (03:43→16:30)
[2020-04-09 04:46] LABS: BASOPHILS % (AUTO) 0.1 % (0.0-2.0); HEMATOCRIT 31 % (33-45); HEMOGLOBIN 10.4 g/dL (11.5-14.8); LYMPHOCYTES # (AUTO) 0.4 /CMM (0.8-4.8); LYMPHOCYTES % (AUTO) 6.4 % (20.0-44.0); MEAN CORPUSCULAR HGB CONC 34 g/dl (31.0-36.0); MEAN CORPUSCULAR VOLUME 100 fL (82-100); MONOCYTES # (AUTO) 0.3 /CMM (0.1-1.30); MONOCYTES % (AUTO) 4.5 % (2.0-12.0); NEUTROPHILS # (AUTO) 5.8 /CMM (1.8-8.9); PLATELET COUNT (AUTO) 91 /CMM (150-450); RED BLOOD CELL COUNT(AUTO) 3.06 MIL/uL (4.0-5.2); WHITE BLOOD COUNT (AUTO) 6.5 K/uL (4.3-11.0)
[2020-04-09 05:07] LABS: CALCIUM, SERUM 6.4 mg/dL (8.5-10.1); CREATININE 0.8 mg/dL (0.6-1.3); MAGNESIUM 1.9 mg/dL (1.8-2.4); POTASSIUM 3.9 mmol/L (3.5-5.1)
[2020-04-09 05:19] LABS: NEUTROPHILS % (MANUAL) 92 (42-76)
[2020-04-09 05:20] LABS: BAND % (MANUAL) 2 % (0.0-5.0); LYMPHOCYTES % (MANUAL) 4 % (16-48); MONOCYTES % (MANUAL) 2 % (0-11.0)
[2020-04-09] MEDS: INSULIN REGULAR, HUMAN 100 UNIT in IV NS 0.9% 99 ML IV PRN ×4 (06:11→16:52)
--- NOTE | 2020-04-09 07:30 | NUR ---
RN OPENING NOTES PATIENT PRESENT IN BED, SEDATED, ON VENT SETTINGS, TOLERATING WELL, SPO2 IS 99%, NO SOB, RESP EVEN AND UNLABORED, ON PROPOFOL @ 60MCG/KG/MIN, JARRELL CATH IN PLACE DRAINING DARK BROWN URINE BY GRAVITY,ON INSULIN DRIP, NOTED Q1 SUGAR CHECK AND ADJUSTMENT, OGT PRESENT, AUSCULTATED AND CHECKED FOR PLACEMENT, IV MIDLINE PATENT AND INTACT, SAFETY MEASURES IN PLACE WILL CONT TO MONITOR
[2020-04-09] MEDS: LEVOTHYROXINE SODIUM 100 MCG TABLET PO SCH (08:13)
[2020-04-09] MEDS: DEXAMETHASONE SOD PHOSPHATE 4 MG/ML VIAL IV SCH (08:14)
[2020-04-09] MEDS: Z GUARD REMEDY 2 OZ OINT TP SCH (08:14)
[2020-04-09] MEDS: ENOXAPARIN SODIUM 100 MG/ML DISP.SYRIN SQ SCH (08:14)
[2020-04-09 08:50] LABS: CALCIUM, SERUM 6.4 mg/dL (8.5-10.1); CREATININE 0.9 mg/dL (0.6-1.3); POTASSIUM 3.8 mmol/L (3.5-5.1)
[2020-04-09] MEDS ORDERED: POTASSIUM CHLORIDE 20 MEQ TAB.PRT.SR PO ONE (11:00)
[2020-04-09 12:19] LABS: CALCIUM, SERUM 6.3 mg/dL (8.5-10.1); CREATININE 0.9 mg/dL (0.6-1.3); POTASSIUM 3.8 mmol/L (3.5-5.1)
[2020-04-09] MEDS: AZITHROMYCIN 500 MG in IV D5W 250 ML IV SCH (18:18)
--- NOTE | 2020-04-09 19:00 | NUR ---
RN NOTE RECEIVED PT IN BED, SEDATED. PATIENT IN NO S/SX OF ACUTE DISTRESS AT THIS TIME. PATIENT'S BREATHING IS EVEN AND UNLABORED. PATIENT IS INTUBATED/ON ET TUBE CONNECTED TO MECHANICAL VENT WITH SETTINGS PRESCRIBED, SATURATION AT 91%. PATIENT IS SR ON THE MONITOR, SR IS 58. NOTED OG TUBE INTACT, PLACEMENT VERIFIED BY AUSCULTATION AND ASPIRATION. NOTED MARCELINO AND DONALD MIDLINE, PATENT AND FLUSHING WELL, NO S/S OF INFECTION, WITH DIPRIVAN INFUSING AT 60 MCG, D10 AT 75 ML/HR, NS AT 75 ML/HR, AND INSULIN DRIP AT 10 UNITS. JARRELL CATHETER CONNECTED TO URINE BAG IN PLACE, DRAINING TO A CLEAR, YELLOW OUTPUT. SAFETY MEASURES IMPLEMENTED. PATIENT BED ALARM IS ON. HEAD OF BED ELEVATED. BED IS LOCKED, IN LOWEST POSITION AND SIDE RAILS UP. CALL LIGHT WITHIN REACH OF THE PATIENT. WILL CONTINUE TO MONITOR AND REASSESS FOR ANY CHANGES.
[2020-04-09] MEDS: CEFTRIAXONE 1 G in IV D5W 50 ML IV SCH (19:07)
--- NOTE | 2020-04-09 19:35 | NUR ---
RN CLOSING NOTE PT IN STABLE CONDITION, O NO SIGNS OF RESP DISTRESS. PT ON INSULIN DRIP PER DR ORDER AND PROPOFOL AT THIS MOMENT, . PT TOLERATING INSULIN DRIP WELL PER PROTOCOL. ALL PT SAFETY PRECAUTIONS IN PLACE. WILL ENDORSE CARE TO ONCOMING NURSE.
[2020-04-09] MEDS ORDERED: ENOXAPARIN SODIUM 100 MG/ML DISP.SYRIN SQ SCH (21:00)
[2020-04-10] VITALS (93 sets, daily range): BP systolic 93–120; BP diastolic 42–54
[2020-04-10] MEDS: BLOOD SUGAR DIAGNOSTIC 1 EACH STRIP IN SCH ×23 (00:48→23:21)
[2020-04-10] MEDS: PROPOFOL 100 ML IV PRN ×9 (00:49→23:00)
[2020-04-10 02:22] LABS: CREATININE 0.9 mg/dL (0.6-1.3); POTASSIUM 3.8 mmol/L (3.5-5.1)
[2020-04-10] MEDS: IV 10% DEXTROSE 1,000 ML IV PRN (03:07)
[2020-04-10] MEDS: INSULIN REGULAR, HUMAN 100 UNIT in IV NS 0.9% 99 ML IV PRN ×4 (03:49→14:37)
--- NOTE | 2020-04-10 04:00 | NUR ---
RN NOTE NOTED TEMP 93.0. PROVIDED PATIENT WITH WARM BLANKETS, CODY CAMPOS APPLIED. LINE DIRECTOR MADE AWARE. WILL COTNINUE TO MONITOR.
[2020-04-10 04:09] LABS: BASOPHILS % (AUTO) 0.1 % (0.0-2.0); EOSINOPHILS % (AUTO) 0.1 % (0.0-6.0); HEMATOCRIT 32 % (33-45); LYMPHOCYTES # (AUTO) 0.5 /CMM (0.8-4.8); LYMPHOCYTES % (AUTO) 5.6 % (20.0-44.0); MEAN CORPUSCULAR HGB CONC 34 g/dl (31.0-36.0); MEAN CORPUSCULAR VOLUME 101 fL (82-100); MONOCYTES # (AUTO) 0.4 /CMM (0.1-1.30); MONOCYTES % (AUTO) 4.9 % (2.0-12.0); NEUTROPHILS # (AUTO) 7.9 /CMM (1.8-8.9); NEUTROPHILS % (AUTO) 89.3 % (43.0-81.0); PLATELET COUNT (AUTO) 75 /CMM (150-450); RED BLOOD CELL COUNT(AUTO) 3.23 MIL/uL (4.0-5.2); WHITE BLOOD COUNT (AUTO) 8.8 K/uL (4.3-11.0)
[2020-04-10 04:18] LABS: MAGNESIUM 1.8 mg/dL (1.8-2.4)
[2020-04-10 04:27] LABS: C-REACTIVE PROTEIN 1.8 mg/dL (0.0-0.9)
[2020-04-10] MEDS: IV NS 0.9% 1,000 ML IV SCH ×3 (05:54→21:13)
[2020-04-10 06:52] LABS: CALCIUM, SERUM 6.5 mg/dL (8.5-10.1); CREATININE 0.9 mg/dL (0.6-1.3); POTASSIUM 3.9 mmol/L (3.5-5.1)
[2020-04-10 08:03] LABS: ABG OXYGEN SATURATION 98.7 % (92.0-98.5); ABG PCO2 29.8 mmHg (35.0-45.0); ABG PH 7.134 (7.350-7.450); ABG PO2 159.7 mmHg (75.0-100.0); AaDO2 307.4 mmHg; O2Hb 98.7 % (94.0-97.0); PEEP,BG 10 cm H2O; SITE, ABG Right Radial; VT, ABG 500 mL
--- NOTE | 2020-04-10 08:18 | NUR ---
DR. IVAN VIGIL NOTIFIED OF MORNING ANION GAP, CO2 AND NA, BLOOD GLUCOSE RUNNING IN THE 390'S OVERNIGHT, CURRENT FORMULA IS BGX2.5/100. ORDERS GIVEN TO CHANGE FORMULA TO BGX3/100.
[2020-04-10] MEDS: LEVOTHYROXINE SODIUM 100 MCG TABLET PO SCH (10:45)
[2020-04-10] MEDS: Z GUARD REMEDY 2 OZ OINT TP SCH (10:46)
[2020-04-10] MEDS: DEXAMETHASONE SOD PHOSPHATE 4 MG/ML VIAL IV SCH (10:46)
[2020-04-10 11:05] LABS: CREATININE 0.9 mg/dL (0.6-1.3); POTASSIUM 3.8 mmol/L (3.5-5.1)
[2020-04-10 11:40] LABS: LYMPHOCYTES % (MANUAL) 9 % (16-48); MONOCYTES % (MANUAL) 5 % (0-11.0); NEUTROPHILS % (MANUAL) 86 (42-76)
[2020-04-10 14:13] LABS: ABG BASE EXCESS -16.2 mmol/L; ABG OXYGEN SATURATION 92.7 % (92.0-98.5); ABG PCO2 34.6 mmHg (35.0-45.0); ABG PH 7.146 (7.350-7.450); ABG PO2 71.9 mmHg (75.0-100.0); COHb 0.3 % (0.5-1.5); MetHb 0.3 % (0.0-1.5); O2Hb 92.1 % (94.0-97.0); PEEP,BG 5 cm H2O; SITE, ABG Right Radial; VT, ABG 500 mL
[2020-04-10 15:02] LABS: CREATININE 0.9 mg/dL (0.6-1.3)
[2020-04-10 15:09] LABS: CALCIUM, SERUM 5.9 mg/dL (8.5-10.1)
[2020-04-10 15:19] LABS: BILIRUBIN,DIRECT 0.7 mg/dL (0.0-0.2); BILIRUBIN,TOTAL 0.9 mg/dL (0.2-1.0)
[2020-04-10] MEDS ORDERED: Sodium Chloride 154 MEQ in IV 10% DEXTROSE 1,000 ML IV PRN (16:00)
[2020-04-10] MEDS ORDERED: IV NS 0.9% 1,000 ML IV ONE (16:30)
[2020-04-10 17:03] LABS: ABG BASE EXCESS -15.8 mmol/L; ABG OXYGEN SATURATION 92.6 % (92.0-98.5); ABG PCO2 33.5 mmHg (35.0-45.0); ABG PH 7.161 (7.350-7.450); ABG PO2 73.9 mmHg (75.0-100.0); AaDO2 389.2 mmHg; COHb 0.2 % (0.5-1.5); MetHb 0.3 % (0.0-1.5); O2Hb 92.1 % (94.0-97.0); PEEP,BG 5 cm H2O; SITE, ABG Right Radial; VT, ABG 500 mL
[2020-04-10] MEDS: CEFTRIAXONE 1 G in IV D5W 50 ML IV SCH (18:04)
[2020-04-10 18:57] LABS: CREATININE 0.9 mg/dL (0.6-1.3); POTASSIUM 4.3 mmol/L (3.5-5.1)
[2020-04-10 19:05] LABS: CALCIUM, SERUM 5.7 mg/dL (8.5-10.1)
[2020-04-10 19:25] LABS: BILIRUBIN,URINE NEGATIVE (NEGATIVE); COLOR,URINE YELLOW (YELLOW); LEUKOCYTE ESTERASE ,URINE NEGATIVE (NEGATIVE); NITRITE, URINE NEGATIVE (NEGATIVE); PH,URINE 5.5 (5.0-8.0); PROTEIN,URINE 30 mg/dl (NEGATIVE); UGLUCOSE NEGATIVE (NEGATIVE); UROBILINOGEN,URINE 0.2 EU/dL (0.2)
[2020-04-10 19:37] LABS: BACTERIA,URINE RARE /HPF (None Seen); RBC,URINE 0-2 /HPF (0-2); WBC,URINE 0-2 /HPF (0-3)
[2020-04-10 19:38] LABS: COARSE GRANULAR CASTS,URINE RARE /LPF (None Seen); HYALINE CASTS, URINE RARE /LPF (None Seen); SQUAMOUS EPITHELIAL CELL,UR 0-2 /HPF (None Seen)
--- NOTE | 2020-04-10 20:45 | NUR ---
RN NOTES PATIENT SEDATED AND ON VENT, TOLERATING SETTINGS WELL. EXTERNAL MONITOR ON, SR 90'S. WITH OG TUBE, PATENT AND INTACT. WITH BILATERAL SOFT WRIST RESTRAINTS, SKIN CIRCULATION CHECKED, NO S/S OF ANY SKIN BREAKDOWN. WITH MARCELINO MIDLINE AND DONALD MIDLINE WITH D10@ 50ML/HR, INSULIN DRIP, PROPOFOL @ 60MCG/HR, AND NS @ 150ML/HR. WITH JARRELL CATHETER DRAINING YELLOW URINE TO GRAVITY. BED LOCKED AND IN LOWEST POSITION. SIDE RAILS UP X2. SAFETY MEASURES IMPLEMENTED. WILL CONTINUE TO MONITOR.
[2020-04-10 22:40] LABS: CREATININE 0.8 mg/dL (0.6-1.3); POTASSIUM 4.2 mmol/L (3.5-5.1)
[2020-04-10 23:06] LABS: CALCIUM, SERUM 5.6 mg/dL (8.5-10.1)
--- NOTE | 2020-04-10 23:41 | NUR ---
RELAYED CA LVL 5.6 TO RAUL WITH ORDERS TO FOLLOW UP WITH DR. العلي IN AM. WILL ENDORSE TO AM SHIFT.
[2020-04-11] VITALS (48 sets, daily range): BP systolic 80–118; BP diastolic 38–59
[2020-04-11] MEDS: BLOOD SUGAR DIAGNOSTIC 1 EACH STRIP IN SCH ×15 (00:16→21:15)
--- NOTE | 2020-04-11 00:32 | NUR ---
INFORMED RAUL OF PATIENT'S BLOOD SUGAR 128 AND CURRENT ANION GAP LVL WITH NEW ORDERS FOR BMP STAT AND IF ANION GAP WNL, WILL START RI AGGRESSIVE SCALE Q4H. NOTED AND CARRIED OUT. WILL CONTINUE TO MONITOR. Addendum: 04/11/20 at 0245 by LUANNE CASILLAS RN WITH NEW ORDERS FOR BMP STAT NOTED AND CARRIED OUT.
[2020-04-11] MEDS: INSULIN REGULAR, HUMAN 100 UNIT in IV NS 0.9% 99 ML IV PRN ×2 (00:34)
[2020-04-11] MEDS: PROPOFOL 100 ML IV PRN ×5 (01:43→12:48)
[2020-04-11 01:44] LABS: CREATININE 0.9 mg/dL (0.6-1.3); POTASSIUM 4.3 mmol/L (3.5-5.1)
[2020-04-11 01:46] LABS: CALCIUM, SERUM 5.7 mg/dL (8.5-10.1)
--- NOTE | 2020-04-11 01:52 | NUR ---
INFORMED RAUL PATIENTS CURRENT BS AND BMP WITH ORDERS TO WAIT FOR NEXT BMP LVL. WILL CONTINUE TO MONITOR.
[2020-04-11 02:44] LABS: BASOPHILS # (AUTO) 0.1 /CMM (0.0-0.2); BASOPHILS % (AUTO) 0.5 % (0.0-2.0); EOSINOPHILS % (AUTO) 0.1 % (0.0-6.0); HEMATOCRIT 33 % (33-45); HEMOGLOBIN 11.3 g/dL (11.5-14.8); LYMPHOCYTES # (AUTO) 0.5 /CMM (0.8-4.8); LYMPHOCYTES % (AUTO) 2.6 % (20.0-44.0); MEAN CORPUSCULAR HGB CONC 35 g/dl (31.0-36.0); MEAN CORPUSCULAR VOLUME 99 fL (82-100); MONOCYTES # (AUTO) 0.5 /CMM (0.1-1.30); MONOCYTES % (AUTO) 2.7 % (2.0-12.0); NEUTROPHILS # (AUTO) 18.6 /CMM (1.8-8.9); NEUTROPHILS % (AUTO) 94.1 % (43.0-81.0); PLATELET COUNT (AUTO) 136 /CMM (150-450); RED BLOOD CELL COUNT(AUTO) 3.31 MIL/uL (4.0-5.2); WHITE BLOOD COUNT (AUTO) 19.7 K/uL (4.3-11.0)
[2020-04-11 02:55] LABS: CREATININE 0.9 mg/dL (0.6-1.3); MAGNESIUM 1.5 mg/dL (1.8-2.4); POTASSIUM 4.2 mmol/L (3.5-5.1)
[2020-04-11] MEDS: IV NS 0.9% 1,000 ML IV SCH (03:38)
[2020-04-11 04:12] LABS: CALCIUM, SERUM 5.8 mg/dL (8.5-10.1)
--- NOTE | 2020-04-11 05:15 | NUR ---
NOTED WITH LACTIC ACID 2.9 AND CALCIUM 5.8, RELAYED TO RAUL WITH NO NEW ORDERS AT THIS TIME. AND TO CONTINUE INSULIN DRIP. WILL CONTINUE TO MONITOR.
[2020-04-11 06:01] LABS: ABG BASE EXCESS -16.2 mmol/L; ABG OXYGEN SATURATION 96.8 % (92.0-98.5); ABG PCO2 34.1 mmHg (35.0-45.0); ABG PH 7.149 (7.350-7.450); ABG PO2 99.4 mmHg (75.0-100.0); AaDO2 435.2 mmHg; COHb 0.4 % (0.5-1.5); MetHb 0.2 % (0.0-1.5); O2Hb 96.2 % (94.0-97.0); PEEP,BG 5 cm H2O; SITE, ABG Right Radial; VT, ABG 500 mL
--- NOTE | 2020-04-11 06:13 | NUR ---
RELAYED ABG PH7.149 AND HCO3 11.6. TO RAUL WITH NEW ORDERS FOR SODIUM BICARB SYR IV 50 MEQ ONCE NOTED AND CARRIED OUT. AND TO WAIT FOR NEPHRO AND PULMO TO SEE PATIENT. WILL ENDORSE TO AM SHIFT.
[2020-04-11] MEDS ORDERED: SODIUM BICARBONATE SYR 50 MEQ/50 ML DISP.SYRIN IV ONE (06:30)
--- NOTE | 2020-04-11 07:40 | NUR ---
RN NOTES PATIENT SEDATED AND ON VENT, TOLERATING SETTINGS WELL. EXTERNAL MONITOR ON, HR 98. WITH OG TUBE, PATENT AND INTACT. WITH BILATERAL SOFT WRIST RESTRAINTS, SKIN CIRCULATION CHECKED, NO S/S OF ANY SKIN BREAKDOWN. WITH MARCELINO MIDLINE AND DONALD MIDLINE WITH D10@ 50ML/HR, INSULIN DRIP, PROPOFOL @ 60MCG/HR, AND NS @ 150ML/HR. WITH JARRELL CATHETER DRAINING YELLOW URINE. ENDORSED TO NEXT SHIFT.
[2020-04-11 08:25] LABS: CREATININE 0.9 mg/dL (0.6-1.3)
[2020-04-11 08:30] LABS: CALCIUM, SERUM 5.4 mg/dL (8.5-10.1)
[2020-04-11] MEDS ORDERED: Sodium Bicarbonate 100 MEQ in IV D5W 1,000 ML IV PRN (09:00)
[2020-04-11] MEDS ORDERED: Calcium Gluconate 1GM/10ML 4.65 MEQ in IV D5W 50 ML IV ONE ×3 (09:00→22:00)
[2020-04-11] MEDS: DEXAMETHASONE SOD PHOSPHATE 4 MG/ML VIAL IV SCH (09:26)
[2020-04-11] MEDS: LEVOTHYROXINE SODIUM 100 MCG TABLET PO SCH (09:26)
[2020-04-11] MEDS: Z GUARD REMEDY 2 OZ OINT TP SCH (09:26)
[2020-04-11 10:43] LABS: CREATININE 0.9 mg/dL (0.6-1.3); POTASSIUM 4.1 mmol/L (3.5-5.1)
[2020-04-11 10:47] LABS: CALCIUM, SERUM 5.5 mg/dL (8.5-10.1)
[2020-04-11] MEDS: Magnesium 1GM/D5W 100ML PREMIX 100 ML IV SCH ×2 (11:21→12:21)
[2020-04-11] MEDS: INSULIN REGULAR, HUMAN 100 UNIT/ML 3 ML VIAL SQ PRN ×3 (13:08→21:35)
[2020-04-11 15:14] LABS: CALCIUM, SERUM 6.1 mg/dL (8.5-10.1); POTASSIUM 4.7 mmol/L (3.5-5.1)
[2020-04-11] MEDS: PRECEDEX 400 MCG/100 ML BOTTLE 100 ML IV PRN ×2 (16:12→18:54)
[2020-04-11] MEDS: FENTANYL CITRAT IV 2,500 MCG in IV NS 0.9% 200 ML IV PRN (16:15)
[2020-04-11] MEDS ORDERED: Sodium Bicarbonate 100 MEQ in IV D5W 1,000 ML IV SCH ×3 (17:00→18:00)
[2020-04-11] MEDS: METRONIDAZOLE 500 MG TABLET NG SCH (17:23)
[2020-04-11] MEDS: NOREPINEPHRINE 8 MG in IV NS 0.9% 242 ML IV PRN (18:08)
--- NOTE | 2020-04-11 18:40 | NUR ---
RN NOTE With ETT to vent, AC 24 500 90% +8. DCd insulin drip today. DCd Diprivan and changed to Fentanyl 2 and Precedex 0.6. see IV spreadsheet. Noted with low BP, restarted Levo, on 0.1 mcg. Started on D5W with 2 amps Bicarb @ 125. OGT and Solis cath intact. Isolation prec for Covid, maintained and observed. MARCELINO and DONALD midlines intact.
[2020-04-11 18:42] LABS: CREATININE 1.2 mg/dL (0.6-1.3); POTASSIUM 4.9 mmol/L (3.5-5.1)
[2020-04-11 19:17] LABS: CALCIUM, SERUM 5.6 mg/dL (8.5-10.1)
--- NOTE | 2020-04-11 19:30 | NUR ---
RN OPENING NOTES RECEIVED PT INTUBATED SEDATED WITH PRECEDEX AND FENTANYL. PT IS ON [facility] VENTILATION, SETTINGS AC 24 TV 500 FIO2 80% AND PEEP OF 8. TOLERATING WELL, NO SOB OR RESP DISTRESS. PT IS ON CARDIAC MONITORING, PT IS NSR 80S. IVF OF SODIUM BICARB IN D5W RUNNING AT 125CC/HR. PT HAS JARRELL CATH DRAINING CLEAR YELLOW URINE VIA GRAVITY. IV SITES MARCELINO AND DONALD MIDLINE FLUSHED, PATENT. SEDATED WITH PRECEDEX AT 0.6MCG, FENTANYL AT 2MCG/KG/HR. SAFETY MEASURES IN PLACE. HOB ELEVATED. SIDE RAILS UP X 2. BED IS LOCKED IN LOWEST POSITION WITH BED ALARM ON. WILL CONT TO MONITOR.
--- NOTE | 2020-04-11 19:35 | NUR ---
OG TUBE NOTED, AUSCULTATED TO CONFIRM PLACEMENT. CLAMPED. RESIDUAL OF 35CC NOTED.
[2020-04-11] MEDS: INSULIN GLARGINE, 100 UNIT/ML CARTRIDGE SQ SCH (22:17)
[2020-04-11] MEDS ORDERED: Calcium Gluconate 0.465 MEQ/ML VIAL IV ONE (22:22)
[2020-04-11 22:28] LABS: CREATININE 1.3 mg/dL (0.6-1.3); POTASSIUM 4.7 mmol/L (3.5-5.1)
--- NOTE | 2020-04-11 22:30 | NUR ---
LAST GLUCOSE CHECK 446 AFTER MULTIPLE TESTS. NOTIFIED HEEL PACKER, SUNNI MIRANDA. IN ADDITION TO COVERING WITH AGGRESSIVE SLIDING SCALE, ADD LANTUS 15UNITS. ORDERS CARRIED OUT.
[2020-04-11 22:47] LABS: CALCIUM, SERUM 5.7 mg/dL (8.5-10.1)
[2020-04-11 23:57] LABS: CREATININE 1.4 mg/dL (0.6-1.3); POTASSIUM 4.7 mmol/L (3.5-5.1)
[2020-04-12] VITALS (80 sets, daily range): BP systolic 76–173; BP diastolic 41–87
[2020-04-12] MEDS: METRONIDAZOLE 500 MG TABLET NG SCH ×5 (00:13→23:06)
[2020-04-12] MEDS: PRECEDEX 400 MCG/100 ML BOTTLE 100 ML IV PRN ×4 (00:21→18:30)
[2020-04-12] MEDS: BLOOD SUGAR DIAGNOSTIC 1 EACH STRIP IN SCH ×7 (00:42→21:48)
--- NOTE | 2020-04-12 00:50 | NUR ---
FROM LAST BMP, GLUCOSE 544. NOTIFIED OPTICAL INSTRUMENT ASSEMBLER, AT THIS TIME ORDERS FOR 20 UNITS OF REGULAR INSULIN AND CHANGE IVF FROM D5W SODIUM BICARB TO SODIUM BICARB NS AT SAME RATE, SAME CONCENTRATION. ORDERS CARRIED OUT.
[2020-04-12] MEDS ORDERED: INSULIN REGULAR, HUMAN 100 UNIT/ML 3 ML VIAL SQ ONE (01:00)
[2020-04-12] MEDS ORDERED: Sodium Bicarbonate 100 MEQ in IV NS 0.9% 1,000 ML IV PRN (01:00)
--- NOTE | 2020-04-12 01:42 | NUR ---
SPOKE TO DOUG FROM PHARMACY REGARDING CHANGE IN IVF TO /2 NS WITH 2AMP BICARB RUNNING AT 125CC/HR. USABILITY ARCHITECT RUBEN MOELLER MADE AWARE. ORDERS CARRIED OUT.
[2020-04-12] MEDS ORDERED: SODIUM BICARBONATE SYR 50 MEQ/50 ML DISP.SYRIN ONE (02:14)
[2020-04-12] MEDS: Sodium Bicarbonate 100 MEQ in IV 1/2NS 1000 ML 1,000 ML IV PRN ×3 (02:38→19:54)
[2020-04-12 04:21] LABS: CREATININE 1.5 mg/dL (0.6-1.3); POTASSIUM 4.5 mmol/L (3.5-5.1)
[2020-04-12] MEDS: FENTANYL CITRAT IV 2,500 MCG in IV NS 0.9% 200 ML IV PRN ×2 (05:26→19:22)
--- NOTE | 2020-04-12 05:55 | NUR ---
MOST RECENT BMP AT 0437, GLUCOSE NOT DONE VIA FINGER STICK. RESULT OF 514, INFORMED CHIEF ENGINEER'S HELPER SUNNI, CHANGE OF FLUIDS CARRIED OUT, ORDER FOR ANOTHER 20 UNIT REGULAR INSULIN AT THIS TIME. WILL CONT TO MONITOR.
[2020-04-12] MEDS: INSULIN REGULAR, HUMAN 100 UNIT/ML 3 ML VIAL SQ PRN ×5 (06:21→21:46)
--- NOTE | 2020-04-12 07:37 | NUR ---
RN CLOSING NOTES PT STILL SAME VENT SETTINGS TOLERATING WELL. NO SOB OR RESP DISTRESS. IVF OF SODIUM BICARB IN 1/2 NS RUNNING AT 125CC/HR. IV SITES MARCELINO AND DONALD MIDLINE FLUSHED, PATENT. SEDATED WITH PRECEDEX AT 0.6MCG, FENTANYL AT 2MCG/KG/HR. PT PLACED BACK ON LEVO AT 0.02 MCG/KG/MIN TO MAINTAIN BP WNL, TITRATED PER PROTOCOL. PT BLOOD SUGAR STILL HIGH, MD AWARE. SAFETY MEASURES IN PLACE. HOB ELEVATED. SIDE RAILS UP X 2. BED IS LOCKED IN LOWEST POSITION WITH BED ALARM ON. ENDORSED TO AM NURSE FOR CONTINUATION OF CARE.
[2020-04-12 07:58] LABS: CREATININE 1.4 mg/dL (0.6-1.3); MAGNESIUM 2.2 mg/dL (1.8-2.4); POTASSIUM 4.3 mmol/L (3.5-5.1)
[2020-04-12 08:08] LABS: CALCIUM, SERUM 5.8 mg/dL (8.5-10.1)
[2020-04-12] MEDS: LEVOTHYROXINE SODIUM 100 MCG TABLET PO SCH (08:18)
[2020-04-12] MEDS: Z GUARD REMEDY 2 OZ OINT TP SCH (08:19)
[2020-04-12] MEDS: DEXAMETHASONE SOD PHOSPHATE 4 MG/ML VIAL IV SCH (08:19)
[2020-04-12 08:54] LABS: ABG BASE EXCESS -11.6 mmol/L; ABG OXYGEN SATURATION 95.9 % (92.0-98.5); ABG PCO2 29.3 mmHg (35.0-45.0); ABG PH 7.286 (7.350-7.450); ABG PO2 85.5 mmHg (75.0-100.0); AaDO2 310.1 mmHg; COHb 0.4 % (0.5-1.5); MetHb 0.3 % (0.0-1.5); O2Hb 95.2 % (94.0-97.0); PEEP,BG 8 cm H2O; VENT MODE, BG AC PRVC 24; VT, ABG 500 mL
[2020-04-12] MEDS: INSULIN GLARGINE, 100 UNIT/ML CARTRIDGE SQ SCH ×2 (10:04→21:47)
[2020-04-12 10:49] LABS: CREATININE 1.4 mg/dL (0.6-1.3); POTASSIUM 4.4 mmol/L (3.5-5.1)
[2020-04-12] MEDS ORDERED: Calcium Gluconate 0.465 MEQ/ML VIAL IV ONE (11:00)
[2020-04-12] MEDS ORDERED: Calcium Gluconate 1GM/10ML 4.65 MEQ in IV NS 0.9% 100 ML IV ONE ×4 (12:00)
[2020-04-12 14:57] LABS: CREATININE 1.4 mg/dL (0.6-1.3); POTASSIUM 4.1 mmol/L (3.5-5.1)
[2020-04-12 19:00] LABS: CREATININE 1.3 mg/dL (0.6-1.3)
--- NOTE | 2020-04-12 19:15 | NUR ---
RN NOTE RECEIVED PT SEDATED IN BED IN SEMI CHAIREZ'S POSITION. PT ORALLY INTUBATED. RESPIRATIONS EVEN AND UNLABORED, VITAL SIGNS STABLE VIA BEDSIDE MONITOR. NO SIGNS OF PAIN OR DISCOMFORT. SR ON THE BEDSIDE MONITOR. WITH OGT IN PLACE VERIFIED VY AUSCULTATION AND CLAMPED. WITH JARRELL CATHETER PATENT AND IN PLACE DRAINING CLEAR BILL COLORED URINE VIA GRAVITY. LEVOPHED ON HOLD FOR BP WNL, RIGHT UPPER ARM AND LEFT UPPER ARM MIDLINE PATENT WITHOUT COMPLICATIONS AT [facility]. WITH FENTANYL DRIP RUNNING AT 2MCG. 1/2NS SODIUM BICARB RUNNING AT 125CC/HOUR AND PRECEDEX RUNNING AT 0.6MCG. WITH WEAK BILATERAL RADIAL AND PEDAL PULSES NOTED BUT WITH BRISK CAP REFILL . EXTREMETIES ALSO WARM TO TOUCH, PT SEDATED, WILL TITRATE PRECEDEX TO 0.4MCG AND MONITOR. AMBU BAG AT BEDSIDE, ALARMS ON AND AUDIBLE, VENT PLUGGED INTO RED OUTLET, SAFETY MEASURES IN PLACE PER PROTOCOL, BED ALARM ON, BED LOCKED AND IN LOW POSITION, SIDE RAILS UP X 2, WILL MONITOR
[2020-04-12 19:17] LABS: CALCIUM, SERUM 5.9 mg/dL (8.5-10.1)
--- NOTE | 2020-04-12 20:51 | NUR ---
RN NOTE RT AT BEDSIDE INCREASED FIO2 TO 80%. O2 SATURATION 93%. WILL CONTINUE TO MONITOR.
--- NOTE | 2020-04-12 20:54 | NUR ---
RN NOTE MADE AWARE OF CA 5.9 WITH NO NEW ORDERS.
--- NOTE | 2020-04-12 22:04 | NUR ---
RN NOTE NOTED WITH CORE TEMP OF 95.2 VIA BEDSIDE MONITOR. ANSHUL KIDDGGER PLACED. ADDITIONAL WARMING MEASURES APPLIED. WILL CONTINUE TO MONITOR. Addendum: 04/12/20 at 2333 by JANEL SANTILLAN RN PT NOW WITH CORE TEMP OF 96.9. WILL CONTINUE TO MONITOR
[2020-04-13] VITALS (93 sets, daily range): BP systolic 88–128; BP diastolic 39–64
--- NOTE | 2020-04-13 | NUR ---
RN NOTE NO CHANGE IN PATIENT CONDITION AT THIS TIME PATIENT VITALS STABLE, NO SIGNS OF ACUTE RESPIRATORY DISTRESS. WILL CONTINUE TO MONITOR AND REASSESS FOR ANY CHANGES THROUGHOUT THE SHIFT.
[2020-04-13] MEDS: BLOOD SUGAR DIAGNOSTIC 1 EACH STRIP IN SCH ×6 (00:06→21:59)
[2020-04-13] MEDS: INSULIN REGULAR, HUMAN 100 UNIT/ML 3 ML VIAL SQ PRN ×2 (00:09→04:21)
[2020-04-13 00:11] LABS: CREATININE 1.1 mg/dL (0.6-1.3)
[2020-04-13 00:12] LABS: CALCIUM, SERUM 5.8 mg/dL (8.5-10.1)
--- NOTE | 2020-04-13 02:00 | NUR ---
RN NOTE COMPLETE BED BATH/AM CARE DONE. PT TOLERATED WELL. NO SIGNS OF DISCOMFORT, VITAL SIGNS STABLE VIA BEDSIDE MONITOR, WILL CONTINUE TO MONITOR
--- NOTE | 2020-04-13 04:00 | NUR ---
RN NOTE NO CHANGE IN PATIENT CONDITION AT THIS TIME PATIENT VITALS STABLE, NO SIGNS OF ACUTE RESPIRATORY DISTRESS. PT REPOSITIONED FOR COMFORT. ORAL CARE DONE Q2H. WILL CONTINUE TO MONITOR AND REASSESS FOR ANY CHANGES THROUGHOUT THE SHIFT.
[2020-04-13] MEDS: Sodium Bicarbonate 100 MEQ in IV 1/2NS 1000 ML 1,000 ML IV PRN (04:48)
[2020-04-13] MEDS: METRONIDAZOLE 500 MG TABLET NG SCH ×3 (05:19→17:30)
--- NOTE | 2020-04-13 07:15 | NUR ---
RN NOTE NO ACUTE CHANGES OBSERVED OVERNIGHT. PT REMAINS SEDATED IN BED IN SEMI CHAIREZ'S POSITION. PT ORALLY INTUBATED. RESPIRATIONS EVEN AND UNLABORED. NO SIGNS OF PAIN OR DISCOMFORT. SR ON THE BEDSIDE MONITOR. WITH OGT IN PLACE VERIFIED BY AUSCULTATION AND CLAMPED. WITH JARRELL CATHETER PATENT AND IN PLACE DRAINING CLEAR BILL COLORED URINE VIA GRAVITY. LEVOPHED RESUMED FOR RECENT LOW BP, RIGHT UPPER ARM AND LEFT UPPER ARM MIDLINE PATENT WITHOUT COMPLICATIONS AT SITES. WITH FENTANYL DRIP RUNNING AT 2MCG. 1/2NS SODIUM BICARB RUNNING AT 125CC/HOUR ORDERED AND PRECEDEX RUNNING AT 0.2MCG. WITH WEAK BILATERAL RADIAL AND PEDAL PULSES NOTED . EXTREMITIES WARM TO TOUCH, PT SEDATED, PERIDEX TITRATED DURING SHIFT. AMBU BAG AT BEDSIDE, ALARMS ON AND AUDIBLE, VENT PLUGGED INTO RED OUTLET, SAFETY MEASURES IN PLACE PER PROTOCOL, BED ALARM ON, BED LOCKED AND IN LOW POSITION, SIDE RAILS UP X 2, ENDORSED TO MORNING RN FOR LINETTE.
--- NOTE | 2020-04-13 07:30 | NUR ---
RN OPENING NOTES PATIENT PRESENT IN BED, SEDATED, ON VENT SETTINGS, TOLERATING WELL, SPO2 IS 96%, NO SOB, RESP EVEN AND UNLABORED, ON PRECEDEX AND FENTANYL DRIPS, TOLERATING WELL, SEWDATION LEVEL IS 3, JARRELL CATH IN PLACE DRAINING DARK BROWN URINE BY GRAVITY, OGT PRESENT, AUSCULTATED AND CHECKED FOR PLACEMENT, IV MIDLINES PATENT AND INTACT, SAFETY MEASURES IN PLACE WILL CONT TO MONITOR
[2020-04-13] MEDS: PRECEDEX 400 MCG/100 ML BOTTLE 100 ML IV PRN (07:33)
[2020-04-13 08:01] LABS: ABG OXYGEN SATURATION 86.3 % (92.0-98.5); ABG PCO2 32.8 mmHg (35.0-45.0); ABG PH 7.387 (7.350-7.450); ABG PO2 52.7 mmHg (75.0-100.0); AaDO2 411.1 mmHg; COHb 0.2 % (0.5-1.5); O2Hb 86.1 % (94.0-97.0); SITE, ABG Right Radial; VENT MODE, BG ac 24 500 70% +8
[2020-04-13 09:04] LABS: BASOPHILS % (AUTO) 0.1 % (0.0-2.0); EOSINOPHILS % (AUTO) 0.4 % (0.0-6.0); HEMATOCRIT 29 % (33-45); HEMOGLOBIN 9.9 g/dL (11.5-14.8); LYMPHOCYTES # (AUTO) 0.4 /CMM (0.8-4.8); LYMPHOCYTES % (AUTO) 3.9 % (20.0-44.0); MEAN CORPUSCULAR HGB CONC 34 g/dl (31.0-36.0); MEAN CORPUSCULAR VOLUME 101 fL (82-100); MONOCYTES # (AUTO) 0.5 /CMM (0.1-1.30); MONOCYTES % (AUTO) 4.6 % (2.0-12.0); NEUTROPHILS # (AUTO) 9.4 /CMM (1.8-8.9); PLATELET COUNT (AUTO) 78 /CMM (150-450); RED BLOOD CELL COUNT(AUTO) 2.89 MIL/uL (4.0-5.2); WHITE BLOOD COUNT (AUTO) 10.3 K/uL (4.3-11.0)
[2020-04-13] MEDS: DEXAMETHASONE SOD PHOSPHATE 4 MG/ML VIAL IV SCH (09:12)
[2020-04-13] MEDS: LEVOTHYROXINE SODIUM 100 MCG TABLET PO SCH (09:12)
[2020-04-13] MEDS: Z GUARD REMEDY 2 OZ OINT TP SCH (09:14)
[2020-04-13 09:50] LABS: POTASSIUM 3.8 mmol/L (3.5-5.1)
[2020-04-13 09:57] LABS: CALCIUM, SERUM 5.7 mg/dL (8.5-10.1)
[2020-04-13] MEDS: INSULIN GLARGINE, 100 UNIT/ML CARTRIDGE SQ SCH ×2 (10:00→22:00)
[2020-04-13] MEDS: FENTANYL CITRAT IV 2,500 MCG in IV NS 0.9% 200 ML IV PRN ×2 (10:36→21:50)
[2020-04-13 10:41] LABS: POTASSIUM 4.2 mmol/L (3.5-5.1)
[2020-04-13 10:46] LABS: CALCIUM, SERUM 5.9 mg/dL (8.5-10.1)
[2020-04-13 10:54] LABS: MAGNESIUM 2.2 mg/dL (1.8-2.4); PHOSPHORUS 3.4 mg/dL (2.5-4.9); POTASSIUM 4.2 mmol/L (3.5-5.1)
[2020-04-13 11:26] LABS: BAND % (MANUAL) 22 % (0.0-5.0); LYMPHOCYTES % (MANUAL) 6 % (16-48); MONOCYTES % (MANUAL) 8 % (0-11.0); NEUTROPHILS % (MANUAL) 64 (42-76)
[2020-04-13 11:30] LABS: CALCIUM, SERUM 5.8 mg/dL (8.5-10.1)
--- NOTE | 2020-04-13 12:15 | NUR ---
PATIENT FINGER STICK BG IS CRITICAL LOW 32, WILL ADMINISTER PRN DEXTROSE
[2020-04-13 12:21] LABS: POTASSIUM 3.8 mmol/L (3.5-5.1)
[2020-04-13] MEDS ORDERED: Calcium Gluconate 0.465 MEQ/ML VIAL IV ONE (12:30)
[2020-04-13] MEDS: NOREPINEPHRINE 8 MG in IV NS 0.9% 242 ML IV PRN (12:33)
[2020-04-13] MEDS: DEXTROSE 50%-WATER 50 ML DISP.SYRIN IV PRN (12:39)
[2020-04-13 13:08] LABS: CALCIUM, SERUM 5.9 mg/dL (8.5-10.1)
--- NOTE | 2020-04-13 13:09 | NUR ---
BG LEVEL RECHECKED, 121, CONT TO MONITOR
[2020-04-13] MEDS: D5W IV SCH ×2 (13:16→17:28)
[2020-04-13] MEDS: CALCIUM GLUCONATE IV SCH ×2 (13:16→17:28)
[2020-04-13 14:59] LABS: POTASSIUM 4.1 mmol/L (3.5-5.1)
[2020-04-13 15:00] LABS: CALCIUM, SERUM 5.8 mg/dL (8.5-10.1)
[2020-04-13 15:01] LABS: BILIRUBIN,DIRECT 0.8 mg/dL (0.0-0.2); BILIRUBIN,TOTAL 1.3 mg/dL (0.2-1.0)
[2020-04-13] MEDS: PROSOURCE / PROSTAT (PYXIS) 30 ML UDC GT SCH (17:28)
--- NOTE | 2020-04-13 19:30 | NUR ---
RN OPENING NOTES RECEIVED PT IN BED, SEDATED WITH PRECEDEX. ON MECHANICAL VENTILATION. ETT 7.08/08 AT THE LIP AC 24 TV 500 FIO2 70% AND PEEP OF 8. TOLERATING WELL. NO RESP DISTRESS OR SOB. O2 SAT 96%. PT IS NSR AT THIS TIME ON TELE MONITOR HEART RATE OF 70. PT HAS NGT, CLAMPED. AUSCULTATED TO CONFIRM PLACEMENT. PT HAS JARRELL CATH DRAINING TO GRAVITY, IV LINES FLUSHED. PRECEDEX AT 0.2MCG FENTANYL @2MG AND LEVO AT 0.02MCG TO KEEP BP WNL. ISOLATION PRECAUTIONS IN PLACE PER PROTOCOL, HOB ELEVATED, BED LOCKED IN LOWEST POSITION, SIDE RAILS UP X3, WILL CONT TO MONITOR.
--- NOTE | 2020-04-13 19:34 | NUR ---
RN CLOSING NOTE PT IN STABLE CONDITION, ON VENT SETTINGS PER MD ORDER WITH NO SIGNS OF RESP DISTRESS. TOLERATING DRIPS WELL. ALL PT SAFETY PRECAUTIONS IN PLACE. WILL ENDORSE CARE TO ONCOMING NURSE.
[2020-04-13] MEDS ORDERED: CALCITRIOL ORAL SOLUTION 1 MCG/ML NG ONE (20:30)
--- NOTE | 2020-04-13 22:00 | NUR ---
PT DID NOT RECEIVE CALCITROL ORDERED MEDICATION. DRUG NOT AVAILABLE PER NURSING CLINICAL CARE LEADER. CHARGE NURSE MADE AWARE. WILL ENDORSE TO AM NURSE.
--- NOTE | 2020-04-13 23:00 | NUR ---
NON DESTRUCTIVE TESTING ENGINEER RUBEN MOELLER INFORMED REGARDING GASTRIC CONTENT OF 300 CC, ORDER TO CONNECT TO LOW INTERMITTENT SUCTION AT THIS TIME. OK TO NOT START TUBE FEEDING.
[2020-04-14] VITALS (69 sets, daily range): BP systolic 87–144; BP diastolic 36–62
[2020-04-14] MEDS: METRONIDAZOLE 500 MG TABLET NG SCH ×4 (01:00→17:04)
[2020-04-14] MEDS: BLOOD SUGAR DIAGNOSTIC 1 EACH STRIP IN SCH ×6 (02:00→21:32)
[2020-04-14] MEDS: PRECEDEX 400 MCG/100 ML BOTTLE 100 ML IV PRN (02:42)
[2020-04-14 05:31] LABS: BASOPHILS % (AUTO) 0.2 % (0.0-2.0); EOSINOPHILS % (AUTO) 0.1 % (0.0-6.0); HEMATOCRIT 32 % (33-45); HEMOGLOBIN 10.9 g/dL (11.5-14.8); LYMPHOCYTES # (AUTO) 0.3 /CMM (0.8-4.8); LYMPHOCYTES % (AUTO) 3.2 % (20.0-44.0); MEAN CORPUSCULAR HGB CONC 34 g/dl (31.0-36.0); MEAN CORPUSCULAR VOLUME 100 fL (82-100); MONOCYTES # (AUTO) 0.7 /CMM (0.1-1.30); MONOCYTES % (AUTO) 7.1 % (2.0-12.0); NEUTROPHILS # (AUTO) 9.4 /CMM (1.8-8.9); NEUTROPHILS % (AUTO) 89.4 % (43.0-81.0); RED BLOOD CELL COUNT(AUTO) 3.16 MIL/uL (4.0-5.2); WHITE BLOOD COUNT (AUTO) 10.5 K/uL (4.3-11.0)
[2020-04-14 05:34] LABS: PLATELET COUNT (AUTO) 75 /CMM (150-450)
[2020-04-14 05:48] LABS: ABG BASE EXCESS -5.7 mmol/L; ABG OXYGEN SATURATION 96.2 % (92.0-98.5); ABG PCO2 31.6 mmHg (35.0-45.0); ABG PH 7.384 (7.350-7.450); ABG PO2 86.2 mmHg (75.0-100.0); AaDO2 378.9 mmHg; COHb 0.2 % (0.5-1.5); MetHb 0.1 % (0.0-1.5); O2Hb 95.9 % (94.0-97.0); PEEP,BG 10 cm H2O; SITE, ABG Left Radial; VT, ABG 500 mL
[2020-04-14 05:48] LABS: CALCIUM, SERUM 6.2 mg/dL (8.5-10.1); CREATININE 0.9 mg/dL (0.6-1.3); MAGNESIUM 2.4 mg/dL (1.8-2.4); PHOSPHORUS 3.6 mg/dL (2.5-4.9); POTASSIUM 4.5 mmol/L (3.5-5.1)
--- NOTE | 2020-04-14 07:30 | NUR ---
RN OPENING NOTES PATIENT PRESENT IN BED, SEDATED, ON VENT SETTINGS, TOLERATING WELL, SPO2 IS 98%, NO SOB, RESP EVEN AND UNLABORED, ON PRECEDEX AND FENTANYL DRIPS, TOLERATING WELL, SEDATION LEVEL IS 3, JARRELL CATH IN PLACE DRAINING DARK BROWN URINE BY GRAVITY, OGT PRESENT, AUSCULTATED AND CHECKED FOR PLACEMENT, IV MID-LINES PATENT AND INTACT, SAFETY MEASURES IN PLACE WILL CONT TO MONITOR
--- NOTE | 2020-04-14 08:30 | NUR ---
PER DR SCHULER OFF OF FENTANYL
[2020-04-14] MEDS: FENTANYL CITRAT IV 2,500 MCG in IV NS 0.9% 200 ML IV PRN (08:35)
[2020-04-14] MEDS: LEVOTHYROXINE SODIUM 100 MCG TABLET PO SCH (09:05)
[2020-04-14] MEDS: Z GUARD REMEDY 2 OZ OINT TP SCH (09:06)
[2020-04-14] MEDS: DEXAMETHASONE SOD PHOSPHATE 4 MG/ML VIAL IV SCH (09:06)
[2020-04-14] MEDS: PROSOURCE / PROSTAT (PYXIS) 30 ML UDC GT SCH ×2 (09:07→16:54)
[2020-04-14] MEDS: INSULIN REGULAR, HUMAN 100 UNIT/ML 3 ML VIAL SQ PRN ×4 (09:24→22:12)
[2020-04-14] MEDS: INSULIN GLARGINE, 100 UNIT/ML CARTRIDGE SQ SCH ×2 (09:24→22:13)
--- NOTE | 2020-04-14 09:24 | NUR ---
HOLDING REGULAR INSULIN DUE PATIENT'S FINGER STICK BG LEVEL WAS 32 YESTREDAY, AND SHE IS STILL NOT ON FEEDING FORMULA DUE HIGH RESIDUAL
[2020-04-14] MEDS: NOREPINEPHRINE 8 MG in IV NS 0.9% 242 ML IV PRN (13:10)
[2020-04-14] MEDS ORDERED: Calcium Gluconate 1GM/10ML 9.3 MEQ in IV D5W 250 ML IV ONE (15:30)
--- NOTE | 2020-04-14 16:20 | NUR ---
patient cleaned and repositoned, tolerating well
--- NOTE | 2020-04-14 18:15 | NUR ---
Called central supply for feeding tube, no response, left message
--- NOTE | 2020-04-14 19:00 | NUR ---
CUSTOMER ACCOUNT TECHNICIAN NOTES BP 123/54, TRENDS OVER LAST FEW HOURS WITH SBP >120. LEVOPHED DRIP TITRATED OFF PER PROTOCOL. WILL MONITOR
[2020-04-14] MEDS ORDERED: GLUCERNA 1.2 1,000 ML BOTTLE NG PRN (19:30)
[2020-04-15] VITALS (55 sets, daily range): BP systolic 67–146; BP diastolic 30–67
[2020-04-15] MEDS: METRONIDAZOLE 500 MG TABLET NG SCH ×4 (00:51→17:10)
[2020-04-15] MEDS: BLOOD SUGAR DIAGNOSTIC 1 EACH STRIP IN SCH ×6 (01:14→21:17)
[2020-04-15] MEDS: INSULIN REGULAR, HUMAN 100 UNIT/ML 3 ML VIAL SQ PRN ×5 (01:35→17:11)
[2020-04-15 04:15] LABS: BASOPHILS % (AUTO) 0.5 % (0.0-2.0); EOSINOPHILS % (AUTO) 0.1 % (0.0-6.0); HEMATOCRIT 27 % (33-45); HEMOGLOBIN 9.5 g/dL (11.5-14.8); LYMPHOCYTES # (AUTO) 0.3 /CMM (0.8-4.8); LYMPHOCYTES % (AUTO) 5.6 % (20.0-44.0); MEAN CORPUSCULAR HGB CONC 35 g/dl (31.0-36.0); MEAN CORPUSCULAR VOLUME 101 fL (82-100); MONOCYTES # (AUTO) 0.4 /CMM (0.1-1.30); MONOCYTES % (AUTO) 6.9 % (2.0-12.0); NEUTROPHILS # (AUTO) 4.4 /CMM (1.8-8.9); NEUTROPHILS % (AUTO) 86.9 % (43.0-81.0); PLATELET COUNT (AUTO) 56 /CMM (150-450); RED BLOOD CELL COUNT(AUTO) 2.73 MIL/uL (4.0-5.2); WHITE BLOOD COUNT (AUTO) 5.1 K/uL (4.3-11.0)
[2020-04-15 04:32] LABS: CALCIUM, SERUM 6.4 mg/dL (8.5-10.1); CREATININE 0.9 mg/dL (0.6-1.3); MAGNESIUM 2.4 mg/dL (1.8-2.4); PHOSPHORUS 3.1 mg/dL (2.5-4.9); POTASSIUM 4.9 mmol/L (3.5-5.1)
[2020-04-15] MEDS: PRECEDEX 400 MCG/100 ML BOTTLE 100 ML IV PRN ×2 (04:57→18:11)
--- NOTE | 2020-04-15 07:00 | NUR ---
SPIRAL BINDER CLOSING NOTES PATIENT REMAINS ORALLY INTUBATED ON MECHANICAL VENTILATION, SEDATED ON PRECEDEX DRIP @ 0.3 MCG/KG/HR. WILL ENDORSE PATIENT TO DAY SHIFT NURSE FOR LINETTE
[2020-04-15] MEDS: LEVOTHYROXINE SODIUM 100 MCG TABLET PO SCH (08:37)
[2020-04-15] MEDS: Z GUARD REMEDY 2 OZ OINT TP SCH (08:37)
[2020-04-15] MEDS: PROSOURCE / PROSTAT (PYXIS) 30 ML UDC GT SCH ×2 (08:37→16:41)
--- NOTE | 2020-04-15 09:00 | NUR ---
Residual 100 cc noted on assesment, will holding feeding untill MD will make rounds
[2020-04-15 10:00] LABS: ABG OXYGEN SATURATION 80.2 % (92.0-98.5); ABG PCO2 31.2 mmHg (35.0-45.0); ABG PH 7.416 (7.350-7.450); ABG PO2 45.6 mmHg (75.0-100.0); AaDO2 275.8 mmHg; MetHb 0.3 % (0.0-1.5); O2Hb 79.2 % (94.0-97.0); PEEP,BG 10 cm H2O; SITE, ABG Right Radial; VT, ABG 500 mL
[2020-04-15] MEDS: INSULIN GLARGINE, 100 UNIT/ML CARTRIDGE SQ SCH ×2 (10:31→21:43)
--- NOTE | 2020-04-15 11:30 | NUR ---
Rechecked residual : 120 cc at this time, holding feeding
[2020-04-15] MEDS ORDERED: Calcium Gluconate 1GM/10ML 4.65 MEQ in IV D5W 50 ML IV ONE (12:30)
[2020-04-15 12:33] LABS: ABG BASE EXCESS -4.2 mmol/L; ABG OXYGEN SATURATION 93.3 % (92.0-98.5); ABG PCO2 33.4 mmHg (35.0-45.0); ABG PH 7.395 (7.350-7.450); ABG PO2 69.6 mmHg (75.0-100.0); AaDO2 465.7 mmHg; COHb 0.2 % (0.5-1.5); O2Hb 93.1 % (94.0-97.0); PEEP,BG 12 cm H2O; SITE, ABG Left Radial; VT, ABG 500 mL
[2020-04-15] MEDS: GLUCERNA 1.2 1,000 ML BOTTLE NG PRN (18:03)
--- NOTE | 2020-04-15 21:43 | NUR ---
MECHANIC SOUND TECHNICIAN NOTES BLOOD SUGAR CHECKED ON RIGHT HAND = 63MG/DL, RECHECK ON LEFT HAND 75MG/DL. NO COVERAGE PER INSULIN SLIDING SCALE, LONG ACING INSULIN HELD WELL PER PARAMETERS. NEXT ACCUCHEK SCHEDULED FOR 0100 ON 04/16/20. WILL MONITOR CLOSELY
[2020-04-16] VITALS (56 sets, daily range): BP systolic 70–184; BP diastolic 39–79
[2020-04-16] MEDS: METRONIDAZOLE 500 MG TABLET NG SCH ×4 (01:01→17:12)
[2020-04-16] MEDS: BLOOD SUGAR DIAGNOSTIC 1 EACH STRIP IN SCH ×6 (01:24→22:22)
--- NOTE | 2020-04-16 03:00 | NUR ---
ENGINE REPAIR SUPERVISOR NOTES PRECEDEX DRIP TITRATED OFF, WILL MONITOR CLOSELY
[2020-04-16 04:29] LABS: BASOPHILS % (AUTO) 0.3 % (0.0-2.0); EOSINOPHILS % (AUTO) 1.5 % (0.0-6.0); HEMATOCRIT 28 % (33-45); HEMOGLOBIN 9.4 g/dL (11.5-14.8); LYMPHOCYTES # (AUTO) 0.2 /CMM (0.8-4.8); LYMPHOCYTES % (AUTO) 3.1 % (20.0-44.0); MEAN CORPUSCULAR HGB CONC 34 g/dl (31.0-36.0); MEAN CORPUSCULAR VOLUME 102 fL (82-100); MONOCYTES # (AUTO) 0.3 /CMM (0.1-1.30); MONOCYTES % (AUTO) 3.8 % (2.0-12.0); NEUTROPHILS % (AUTO) 91.3 % (43.0-81.0); RED BLOOD CELL COUNT(AUTO) 2.71 MIL/uL (4.0-5.2); WHITE BLOOD COUNT (AUTO) 6.5 K/uL (4.3-11.0)
[2020-04-16 04:41] LABS: CALCIUM, SERUM 7.1 mg/dL (8.5-10.1); CREATININE 0.8 mg/dL (0.6-1.3); POTASSIUM 4.3 mmol/L (3.5-5.1)
[2020-04-16 04:52] LABS: PLATELET COUNT (AUTO) 40 /CMM (150-450)
[2020-04-16 06:32] LABS: LYMPHOCYTES % (MANUAL) 4 % (16-48); NEUTROPHILS % (MANUAL) 86 (42-76)
[2020-04-16 06:33] LABS: BAND % (MANUAL) 6 % (0.0-5.0); MONOCYTES % (MANUAL) 4 % (0-11.0)
[2020-04-16] MEDS: LEVOTHYROXINE SODIUM 100 MCG TABLET PO SCH (08:01)
[2020-04-16] MEDS: Z GUARD REMEDY 2 OZ OINT TP SCH (08:02)
[2020-04-16] MEDS: PROSOURCE / PROSTAT (PYXIS) 30 ML UDC GT SCH ×2 (08:02→17:12)
[2020-04-16 08:22] LABS: ABG BASE EXCESS 0.1 mmol/L; ABG OXYGEN SATURATION 88.3 % (92.0-98.5); ABG PCO2 35.9 mmHg (35.0-45.0); ABG PH 7.442 (7.350-7.450); ABG PO2 58.1 mmHg (75.0-100.0); AaDO2 366.3 mmHg; COHb 0.1 % (0.5-1.5); MetHb 0.1 % (0.0-1.5); O2Hb 88.1 % (94.0-97.0); SITE, ABG Right Radial; VENT MODE, BG AC 24 65% 500 +12
[2020-04-16] MEDS: INSULIN GLARGINE, 100 UNIT/ML CARTRIDGE SQ SCH ×2 (09:24→22:24)
--- NOTE | 2020-04-16 09:25 | NUR ---
INSULIN LANTUS NON-ADMIN, BS 68
[2020-04-16 17:41] LABS: THYROID STIMULATING HORMONE 1.001 uIU/mL (0.358-3.74)
[2020-04-16] MEDS: PRECEDEX 400 MCG/100 ML BOTTLE 100 ML IV PRN (18:49)
[2020-04-16] MEDS: NOREPINEPHRINE 8 MG in IV NS 0.9% 242 ML IV PRN (21:48)
--- NOTE | 2020-04-16 21:48 | NUR ---
MARBLE INSTALLATION HELPER NOTES PATIENT SLIGHTLY AGITATED, PRECEDEX DRIP TITRATED SLOWLY UP TO 0.6 MCG/KG/HR. PATIENT AT PROPER LEVEL OF SEDATION, BUT SBP PERSISTENTLY LOW CUURENTLY 87/40. HR 73 BPM. LEVOPHED DRIP INITIATED @ 0.1MCG/KG/MIN PER PROTOCOL. WILL TITRATE ACCORDINGLY
[2020-04-16] MEDS: INSULIN REGULAR, HUMAN 100 UNIT/ML 3 ML VIAL SQ PRN (22:23)
--- NOTE | 2020-04-16 23:20 | NUR ---
TAIL WORKER NOTES FIO2 TITRATED DOWN TO 75% BY RT JOHN. PATIENT TOLERATING ADJUSTED FIO2, WILL MONITOR CLOSELY
[2020-04-16] MEDS: LACTULOSE 10 G/15 ML UDC (PYXIS) PO PRN (23:50)
[2020-04-17] VITALS (87 sets, daily range): BP systolic 96–137; BP diastolic 45–74
[2020-04-17] MEDS: METRONIDAZOLE 500 MG TABLET NG SCH ×4 (00:01→18:47)
[2020-04-17] MEDS: BLOOD SUGAR DIAGNOSTIC 1 EACH STRIP IN SCH ×6 (00:02→21:30)
[2020-04-17] MEDS: INSULIN REGULAR, HUMAN 100 UNIT/ML 3 ML VIAL SQ PRN ×5 (00:20→21:35)
[2020-04-17] MEDS: PRECEDEX 400 MCG/100 ML BOTTLE 100 ML IV PRN ×3 (01:18→15:27)
[2020-04-17 04:31] LABS: BASOPHILS % (AUTO) 0.1 % (0.0-2.0); EOSINOPHILS % (AUTO) 1.1 % (0.0-6.0); HEMATOCRIT 31 % (33-45); HEMOGLOBIN 10.2 g/dL (11.5-14.8); LYMPHOCYTES # (AUTO) 0.1 /CMM (0.8-4.8); LYMPHOCYTES % (AUTO) 1.2 % (20.0-44.0); MEAN CORPUSCULAR HGB CONC 33 g/dl (31.0-36.0); MEAN CORPUSCULAR VOLUME 103 fL (82-100); MONOCYTES # (AUTO) 0.3 /CMM (0.1-1.30); MONOCYTES % (AUTO) 2.6 % (2.0-12.0); NEUTROPHILS # (AUTO) 10.5 /CMM (1.8-8.9); RED BLOOD CELL COUNT(AUTO) 2.96 MIL/uL (4.0-5.2); WHITE BLOOD COUNT (AUTO) 11.1 K/uL (4.3-11.0)
[2020-04-17 04:54] LABS: ALBUMIN 1.7 g/dL (3.4-5.0); BILIRUBIN,TOTAL 1.5 mg/dL (0.2-1.0); CALCIUM, SERUM 7.4 mg/dL (8.5-10.1); CREATININE 0.9 mg/dL (0.6-1.3); POTASSIUM 4.9 mmol/L (3.5-5.1); TOTAL PROTEIN, SERUM 5.2 g/dL (6.4-8.2)
[2020-04-17 05:04] LABS: PLATELET COUNT (AUTO) 45 /CMM (150-450)
[2020-04-17 05:47] LABS: LYMPHOCYTES % (MANUAL) 2 % (16-48); MONOCYTES % (MANUAL) 3 % (0-11.0); NEUTROPHILS % (MANUAL) 95 (42-76)
[2020-04-17] MEDS: LACTULOSE 10 G/15 ML UDC (PYXIS) PO PRN (06:04)
--- NOTE | 2020-04-17 06:45 | NUR ---
PASSENGER BRAKEMAN CLOSING NOTES LEVOPHED DRIP TITRATED DOWN TO 0.01MCG/KG/MIN. PRECEDEX DRIP REMAINS AT 0.6 MCG/KG/HR. LACTULOSE ADMINISTERED X2, NO BM NOTED, ACTIVE BOWEL SOUNDS. WILL ENDORSE THE PATIENT TO THE AM SHIFT NURSE FOR LINETTE
--- NOTE | 2020-04-17 07:30 | NUR ---
FIRE HYDRANT OPERATOR OPENING NOTE PT SEDATED ON VENT SETTINGS ORDERED WITH NO SIGNS OF RESP DISTRESS OR SOB, SPO2 OF 95%. PT HAS OGT IN PLACE WITH GLUCERNA RUNNING AT 10ML/HR, JARRELL CATH DRAINING BILL COLORED URINE WITH SEDIMENT TO GRAVITY. PT INFUSING PRECEDEX @ 0.6 MCG/KG/HR AND LEVO @ 0.01 MCG/KG/MIN. PT HAS LLQ BLISTER ON ABD. ALL PT SAFETY MEASURES IN PLACE. WILL CONT TO MONITOR
[2020-04-17] MEDS: LEVOTHYROXINE SODIUM 100 MCG TABLET PO SCH (08:40)
[2020-04-17] MEDS: PROSOURCE / PROSTAT (PYXIS) 30 ML UDC GT SCH ×2 (08:40→17:00)
[2020-04-17] MEDS: Z GUARD REMEDY 2 OZ OINT TP SCH (08:41)
--- NOTE | 2020-04-17 09:07 | NUR ---
RN NOTE PER SYSTEM VALIDATION ENGINEER DAVID, OKAY TO CONTINUE GTUBE FEEDING @ 10ML/HR AND MEDS FOR PT WITH RESIDUALS OF 125CC. HOLD FOR RESIDUALS OF 150CC. WILL REASSESS RESIDUALS IN 4HR PER DAVID
[2020-04-17 09:25] LABS: ABG BASE EXCESS -2.8 mmol/L; ABG OXYGEN SATURATION 93.8 % (92.0-98.5); ABG PCO2 33.7 mmHg (35.0-45.0); ABG PH 7.415 (7.350-7.450); ABG PO2 75.1 mmHg (75.0-100.0); AaDO2 423.9 mmHg; COHb 0.4 % (0.5-1.5); O2Hb 93.4 % (94.0-97.0); PEEP,BG 14 cm H2O; SITE, ABG Left Radial; VENT MODE, BG AC 75%; VT, ABG 500 mL
[2020-04-17] MEDS: INSULIN GLARGINE, 100 UNIT/ML CARTRIDGE SQ SCH ×2 (10:52→21:35)
--- NOTE | 2020-04-17 11:30 | NUR ---
RN NOTE INTAKE COUNSELOR ADRIANA AWARE OF PLT AT 45
--- NOTE | 2020-04-17 12:49 | NUR ---
RN NOTE GTUBE RESIDUALS AT 50CC, INCREASED FEEDING TO 15ML/HR. WILL REASSESS IN 4HR
--- NOTE | 2020-04-17 19:00 | NUR ---
RECEIVED PATIENT ORALLY INTUBATED ON AC MODE,NOT IN ANY ACUTE RESPIRATORY DISTRESS.SEDATED ON PRECEDEX DRIP.lEVOPHED DRIP FOR BP SUPPORT. + GENERALIZED EDEMA.FEEDING VIA OGT ,ASPIRATION PRECAUTION OBSERVED.
--- NOTE | 2020-04-17 19:00 | NUR ---
ELECTRIC SHOVEL OPERATOR CLOSING NOTE PT IN STABLE CONDITION. NO SIGNS OF RESP DISTRESS. NO CHANGES TO PT STATUS. ALL SAFETY PRECAUTIONS INI PLACE. WILL ENDORSE LINETTE TO ONCOMING RN
[2020-04-18] VITALS (68 sets, daily range): BP systolic 64–134; BP diastolic 32–67
--- NOTE | 2020-04-18 | NUR ---
STATUS UNCHANGED,REMAINS SEDATED,ON LOW DOSE LEVOPHED ,BP STABLE. NOTED TO BE WAKING UP A LITTLE,SLIGHTLY OPENS EYES TO PAIN ,COUGHING AND BREATHING WITH DEEP INSPIRATORY EFFORT,INCREASE PRECEDEX .
[2020-04-18] MEDS: PRECEDEX 400 MCG/100 ML BOTTLE 100 ML IV PRN ×5 (01:03→22:41)
[2020-04-18] MEDS: BLOOD SUGAR DIAGNOSTIC 1 EACH STRIP IN SCH ×6 (01:08→21:38)
--- NOTE | 2020-04-18 02:00 | NUR ---
DESATURATING INN THE 80'S ,FIO2 INCREASED BY RT TO 75%.NOTED TO BE BREATHING MORE LABORED, INCREASE PRECEDEX DRIP TO 0.6
--- NOTE | 2020-04-18 03:00 | NUR ---
AFTER AM BATH, POST TURNING AND MOVING AND PLACING FLAT ON BED, BREATHING LABORED WITH PIP=50'S,PRECEDEX UP TO 0.7
[2020-04-18 05:07] LABS: BASOPHILS % (AUTO) 0.1 % (0.0-2.0); EOSINOPHILS % (AUTO) 1.3 % (0.0-6.0); HEMATOCRIT 31 % (33-45); HEMOGLOBIN 10.3 g/dL (11.5-14.8); LYMPHOCYTES # (AUTO) 0.2 /CMM (0.8-4.8); LYMPHOCYTES % (AUTO) 1.7 % (20.0-44.0); MEAN CORPUSCULAR HGB CONC 33 g/dl (31.0-36.0); MEAN CORPUSCULAR VOLUME 104 fL (82-100); MONOCYTES # (AUTO) 0.1 /CMM (0.1-1.30); NEUTROPHILS # (AUTO) 10.8 /CMM (1.8-8.9); NEUTROPHILS % (AUTO) 95.9 % (43.0-81.0); RED BLOOD CELL COUNT(AUTO) 2.99 MIL/uL (4.0-5.2); WHITE BLOOD COUNT (AUTO) 11.3 K/uL (4.3-11.0)
[2020-04-18 05:15] LABS: PLATELET COUNT (AUTO) 38 /CMM (150-450)
--- NOTE | 2020-04-18 05:35 | NUR ---
RT pt received on mechanical vent with current settings. orally intubated, 7.5 21@lip. vent plugged in to red outlet. alarms on and audible. fio2 increased from 65% to 75% and then 90% due to desaturation. pt saturation in mid to low 80s. at 90% fio2, saturation holding around 94-95%. jose daniel wade, aware of fio2 increase and pt's increased wob.
[2020-04-18 05:45] LABS: EOSINOPHILS % (MANUAL) 2 % (0-4); LYMPHOCYTES % (MANUAL) 3 % (16-48); MONOCYTES % (MANUAL) 1 % (0-11.0); NEUTROPHILS % (MANUAL) 94 (42-76)
--- NOTE | 2020-04-18 07:00 | NUR ---
STILL SEDATED ,PRECEDEX NOW @ 1 MCK/KG/HR. BREATHING LESS LABORED AND SATURATING 99 % ON FIO2 90 % ,BUT STILL WITH DEEP INSPIRATORY EFFORT.MAY NEED BETTER SEDATION ASIDE FROM PRECEDEX. BP STABLE ONLY AT LOW DOSE LEVOPHED .
--- NOTE | 2020-04-18 07:20 | NUR ---
GUEST EXPERIENCE CAPTAIN OPENING NOTES RECEIVED PT SEDATED. PRECEDEX RUNNING @1 MCG/KG/HR ON MARCELINO MIDLINE. LEVOPHED @0.01 MCG/KG/MIN ON DONALD MIDLINE. TOLERATING VENT SETTINGS WELL. SATURATING @99% SAFETY MEASURES IN PLACE. BED LOCKED AND AT LOWEST POSITION WITH SIDE RAILS UP X2. BED ALARM ON. WILL CONTINUE TO MONITOR.
--- NOTE | 2020-04-18 08:09 | NUR ---
WOUND CARE CONSULT: REVIEWED CHART, NURSING DOCUMENTATION AND PHOTO WHICH INDICATES DISCOLORATION TO LEFT BUTTOCK. PT IS ON ROGELIO ISOFLEX LOW AIRLOSS BED. ALL SKIN PROTECTION RECOMMENDATIONS DISCUSSED WITH NURSING STAFF. IN AGREEMENT WITH PLAN OF CARE. Addendum: 04/18/20 at 0812 by CARLOS BROWNLEE WNDNU PT NOTED TO HAVE LOW PLATELET COUNT.
[2020-04-18] MEDS: PROSOURCE / PROSTAT (PYXIS) 30 ML UDC GT SCH ×2 (09:09→16:30)
[2020-04-18] MEDS: LEVOTHYROXINE SODIUM 100 MCG TABLET PO SCH (09:09)
[2020-04-18] MEDS: Z GUARD REMEDY 2 OZ OINT TP SCH (09:09)
[2020-04-18 09:13] LABS: ABG BASE EXCESS -1.6 mmol/L; ABG OXYGEN SATURATION 91.1 % (92.0-98.5); ABG PCO2 40.2 mmHg (35.0-45.0); ABG PH 7.382 (7.350-7.450); ABG PO2 66.3 mmHg (75.0-100.0); AaDO2 534.2 mmHg; COHb 0.2 % (0.5-1.5); MetHb 0.1 % (0.0-1.5); O2Hb 90.8 % (94.0-97.0); SITE, ABG Right Radial; VENT MODE, BG AC 24 500 +14 90%
[2020-04-18] MEDS: INSULIN GLARGINE, 100 UNIT/ML CARTRIDGE SQ SCH ×2 (10:26→22:00)
[2020-04-18] MEDS: NOREPINEPHRINE 8 MG in IV NS 0.9% 242 ML IV PRN (15:25)
--- NOTE | 2020-04-18 18:51 | NUR ---
FLOOR AND WALL APPLIER LIQUID OPENING NOTES PT STILL SEDATED. PRECEDEX RUNNING @1 MCG/KG/HR ON MARCELINO MIDLINE. LEVOPHED @0.02 MCG/KG/MIN ON DONALD MIDLINE. TOLERATING VENT SETTINGS WELL. SATURATING @98% SAFETY MEASURES IN PLACE. BED LOCKED AND AT LOWEST POSITION WITH SIDE RAILS UP X2. BED ALARM ON. WILL ENDORSE TO NIGHT NURSE FOR LINETTE Addendum: 04/18/20 at 1854 by TATI DELACRUZ RN CLOSING NOTES
[2020-04-18] MEDS ORDERED: FLUCONAZOLE (100 MG) 100 MG TABLET PO SCH (21:00)
[2020-04-18] MEDS ORDERED: DOSING PER PHARMACY-AMIKACI IV XX PRN (21:00)
[2020-04-18] MEDS ORDERED: AMIKACIN 1,000 MG in IV D5W 100 ML IV ONE (22:00)
[2020-04-18] MEDS: GLUCERNA 1.2 1,000 ML BOTTLE NG PRN (23:19)
[2020-04-18] MEDS ORDERED: CLINDAMYCIN 900 MG/6 ML VIAL ONE (23:47)
[2020-04-18] MEDS ORDERED: AMIKACIN 250 MG/ML VIAL ONE (23:47)
[2020-04-19] VITALS (36 sets, daily range): BP systolic 62–206; BP diastolic 27–94
[2020-04-19] MEDS: CLINDAMYCIN 900 MG in IV D5W 50 ML IV SCH ×3 (00:01→13:14)
[2020-04-19] MEDS: PHENYLEPHRINE 100 MG in IV NS 0.9% 240 ML IV PRN ×3 (00:15→14:22)
--- NOTE | 2020-04-19 00:15 | NUR ---
COURT LIAISON: NEOSYNEPHRINE DRIP STARTED. PT. REMAINS HEMODYNAMICALLY UNSTABLE. WILL TITRATE VASOPRESSORS ACCORDINGLY.
--- NOTE | 2020-04-19 00:35 | NUR ---
DIPPING MACHINE OPERATOR: CHARGE NURSE CALLED AND NOTIFIED SON OF PT'S CRITICAL CONDITION. SON YOVANI DECIDED TO CHANGE CODE STATUS TO DNR.
[2020-04-19] MEDS ORDERED: PHENYLEPHRINE 10 MG/ML VIAL ONE (00:47)
--- NOTE | 2020-04-19 01:18 | NUR ---
PRIVATE DETECTIVE: HEART RATE IN THE 120s, ST. PT REMAINS TO BE LABORED BREATHING. 02 SAT 100%. MAX. DOSE ON LEVOPHED. AND ON NEOSYNEPHRINE DRIP. COMFORT MEASURES NOTED AT ALL TIMES.
[2020-04-19] MEDS ORDERED: ACETAMINOPHEN 650 MG/20.3 ML UDC GT PRN (01:30)
[2020-04-19] MEDS: BLOOD SUGAR DIAGNOSTIC 1 EACH STRIP IN SCH ×5 (01:38→16:22)
--- NOTE | 2020-04-19 01:45 | NUR ---
MACHINE SIGN WRITER: PRECEDEX TITRATED DOWN AND OFF AT THIS TIME. PT DEEPLY SEDATED.
[2020-04-19] MEDS ORDERED: NOREPINEPHRINE 8MG/250ML RTU 250 ML IV ONE (03:31)
[2020-04-19] MEDS: NOREPINEPHRINE 8 MG in IV NS 0.9% 242 ML IV PRN (03:33)
[2020-04-19] MEDS ORDERED: NOREPINEPHRINE 4 MG/4 ML AMPUL IV ONE (04:03)
[2020-04-19] MEDS: NOREPINEPHRINE 32 MG in IV NS 0.9% 218 ML IV PRN ×2 (05:39→15:59)
[2020-04-19] MEDS ORDERED: CLINDAMYCIN 900 MG/6 ML VIAL ONE (05:52)
--- NOTE | 2020-04-19 06:45 | NUR ---
JD EDWARDS: STILL OFF GT FEEDING AND PRECEDEX. ON MAX. DOSE RATE OF NEOSYNEPHRINE. TITRATED LEVOPHED TO 0.6MCG/KG/MIN D/T ELEVATED HR (HR IMPROVED WHEN LEVOPHED WAS TITRATED DOWN). UNABLE TO APPRECIATE BP MOSTLY THROUGHOUT THE SHIFT. HOB LOWERED. GOOD ORAL CARE RENDERED. WILL CONTINUE TO MONITOR.
[2020-04-19 08:43] LABS: ALBUMIN 1.8 g/dL (3.4-5.0); BILIRUBIN,TOTAL 2.8 mg/dL (0.2-1.0); CALCIUM, SERUM 8.1 mg/dL (8.5-10.1); CREATININE 1.4 mg/dL (0.6-1.3); TOTAL PROTEIN, SERUM 6.2 g/dL (6.4-8.2)
[2020-04-19] MEDS: DEXTROSE 50%-WATER 50 ML DISP.SYRIN IV PRN ×2 (08:55→12:37)
[2020-04-19] MEDS: LEVOTHYROXINE SODIUM 100 MCG TABLET PO SCH (08:56)
[2020-04-19] MEDS: PROSOURCE / PROSTAT (PYXIS) 30 ML UDC GT SCH ×2 (08:56→16:22)
[2020-04-19] MEDS: Z GUARD REMEDY 2 OZ OINT TP SCH (08:56)
[2020-04-19 08:59] LABS: BASOPHILS % (AUTO) 0.1 % (0.0-2.0); EOSINOPHILS % (AUTO) 0.8 % (0.0-6.0); HEMATOCRIT 39 % (33-45); HEMOGLOBIN 11.8 g/dL (11.5-14.8); LYMPHOCYTES # (AUTO) 0.7 /CMM (0.8-4.8); LYMPHOCYTES % (AUTO) 2.2 % (20.0-44.0); MEAN CORPUSCULAR HGB CONC 30 g/dl (31.0-36.0); MEAN CORPUSCULAR VOLUME 113 fL (82-100); MONOCYTES # (AUTO) 0.8 /CMM (0.1-1.30); MONOCYTES % (AUTO) 2.5 % (2.0-12.0); NEUTROPHILS # (AUTO) 29.1 /CMM (1.8-8.9); NEUTROPHILS % (AUTO) 94.4 % (43.0-81.0); PLATELET COUNT (AUTO) 98 /CMM (150-450); RED BLOOD CELL COUNT(AUTO) 3.46 MIL/uL (4.0-5.2)
[2020-04-19 09:04] LABS: WHITE BLOOD COUNT (AUTO) 30.8 K/uL (4.3-11.0)
[2020-04-19] MEDS: PRECEDEX 400 MCG/100 ML BOTTLE 100 ML IV PRN ×2 (09:53→15:49)
[2020-04-19] MEDS: INSULIN GLARGINE, 100 UNIT/ML CARTRIDGE SQ SCH (10:00)
[2020-04-19 10:07] LABS: ABG BASE EXCESS -12.3 mmol/L; ABG OXYGEN SATURATION 88.1 % (92.0-98.5); ABG PCO2 47.2 mmHg (35.0-45.0); ABG PH 7.154 (7.350-7.450); ABG PO2 67.2 mmHg (75.0-100.0); AaDO2 598.6 mmHg; COHb 0.5 % (0.5-1.5); MetHb 0.3 % (0.0-1.5); O2Hb 87.4 % (94.0-97.0); PEEP,BG 14 cm H2O; SITE, ABG Right Radial; VT, ABG 500 mL
--- NOTE | 2020-04-19 10:18 | NUR ---
VENT CHANGES BELOW MADE PER DR. SCHULER: AC 30 1:2 I:E ratio Addendum: 04/19/20 at 1019 by CASANDRA LUNDBERG RT Amended: Links added.
[2020-04-19] MEDS ORDERED: HYDROCORTISONE SOD SUCCINATE 100 MG/2 ML VIAL IV SCH (13:00)
[2020-04-19 13:12] LABS: BAND % (MANUAL) 4 % (0.0-5.0); EOSINOPHILS % (MANUAL) 1 % (0-4); LYMPHOCYTES % (MANUAL) 1 % (16-48); MONOCYTES % (MANUAL) 6 % (0-11.0); NEUTROPHILS % (MANUAL) 88 (42-76)
[2020-04-19] MEDS ORDERED: IV D5W 1,000 ML IV PRN (15:00)
--- NOTE | 2020-04-19 18:09 | NUR ---
PATIENT AT 1809. POSTMORTEM CARE DONE. MADE AWARE. BODY PLACED IN DOUBLE BAG. PROPER IDENTIFICATION CARDS PLACED ON PATIENT.
--- NOTE | 2020-04-19 20:14 | NUR ---
SPOKE TO FAMILY, MAURO [facility] TO INFORM THEM. SON STATED THAT THEY DO NOT HAVE A MORTUARY ARRANGEMENT AT THIS TIME. INFORMED THAT PATIENT WILL REMAIN IN HOSPITAL FOR TWO DAYS TO GIVE THEM TIME TO MAKE ARRANGEMENTS. SON STATED HE WILL CALL BACK WHEN ARRANGEMENTS ARE MADE. INFORMED SON THAT PATIENT'S CELL PHONE AND EARRINGS WILL BE WITH THE NURSING SOUR BLEACHING PLEATER.
[2020-04-20] MEDS ORDERED: AMIKACIN 500 MG in IV D5W 100 ML IV SCH (06:00)
== END 2020-04-19 18:09 | disposition expired | DRG 870 ==
LOC: ER 15:04 → TRANSITION 22:29 → UNDOADMIN 22:29 → TELE1 04-05 01:49 → TRANSITION 04-05 01:49 → TELE1 04-05 11:18 → ICU 04-05 11:18 → UNDODISIN 04-19 18:09
PROVIDERS: ADMIT Registered Nurse; ATTEND Nurse Practitioner Acute Care
PROC: 5A1955Z Respiratory Ventilation, Greater than 96 Consecutive Hours (ICD-10-PCS; principal; 2020-04-05)
PROC: XW033E5 Introduction of Remdesivir Anti-infective into Peripheral Vein, Percutaneous Approach, New Technology Group 5 (ICD-10-PCS; 2020-04-05)
PROC: XW13325 Transfusion of Convalescent Plasma (Nonautologous) into Peripheral Vein, Percutaneous Approach, New Technology Group 5 (ICD-10-PCS; 2020-04-05)
PROC: 0BH18EZ Insertion of Endotracheal Airway into Trachea, Via Natural or Artificial Opening Endoscopic (ICD-10-PCS; 2020-04-05)
PROC: 05HY33Z Insertion of Infusion Device into Upper Vein, Percutaneous Approach (ICD-10-PCS; 2020-04-05)
DX: A41.89 Other specified sepsis (principal); U07.1 COVID-19; E11.10 Type 2 diabetes mellitus with ketoacidosis without coma; J96.01 Acute respiratory failure with hypoxia; J12.82 Pneumonia due to coronavirus disease 2019; N17.0 Acute kidney failure with tubular necrosis; J15.9 Unspecified bacterial pneumonia; R65.21 Severe sepsis with septic shock; E87.1 Hypo-osmolality and hyponatremia; D68.59 Other primary thrombophilia; E87.2 Acidosis; E66.2 Morbid (severe) obesity with alveolar hypoventilation; Z68.41 Body mass index [BMI] 40.0-44.9, adult; J98.11 Atelectasis; E87.0 Hyperosmolality and hypernatremia; E72.20 Disorder of urea cycle metabolism, unspecified; Z51.5 Encounter for palliative care; Z66 Do not resuscitate; K74.60 Unspecified cirrhosis of liver; E03.9 Hypothyroidism, unspecified; Z79.4 Long term (current) use of insulin; D69.6 Thrombocytopenia, unspecified; E86.9 Volume depletion, unspecified; K76.0 Fatty (change of) liver, not elsewhere classified; D53.9 Nutritional anemia, unspecified; I10 Essential (primary) hypertension; K80.20 Calculus of gallbladder without cholecystitis without obstruction; I86.8 Varicose veins of other specified sites; E21.3 Hyperparathyroidism, unspecified; E86.1 Hypovolemia
CPT/HCPCS: 31720; 36410; 36415; 36600; 71045-TC; 76700-TC; 80048-TC; 80053-TC; 80061-TC; 81001; 82040-TC; 82140-TC; 82247-TC; 82248-TC; 82310-TC; 82533; 82570-TC; 82728-TC; 82803-TC; 82962-TC; 83605-TC; 83615-TC; 83735-TC; 83880; 83970; 84100-TC; 84155-TC; 84300-TC; 84443-TC; 84478-TC; 84484-TC; 85025-TC; 85378-TC; 85385-TC; 85610-TC; 85730-TC; 86140-TC; 86704; 86706; 86803; 86850-TC; 87040-TC; 87070-TC; 87081-TC; 87086-TC; 87806; 93307-TC; 93970-TC; 94002-TC; 94003-TC; 94640-TC; 94760-TC; 94799-TC; C9803; G0378; J0278; J0330; J0456; J0610; J0696; J1100; J1650; J1720; J1815; J2370; J2405; J3010; J3475; J3490; J7030; J7040; J7050; J7060; J7070; P9017-BL; U0003